=== PATIENT | male | born 1940 | race Caucasian/White ===

== ENCOUNTER → 2023-03-07 09:21 | Outpatient (REF) | payer MEDICARE, OTHER, SELFPAY ==
[2023-03-07 10:59] LABS: Magnesium 1.5 mg/dl (1.6-2.3)
== END ==
LOC: OLABN 09:21
PROVIDERS: ATTENDING PHYSICIAN Student in an Organized Health Care Education/Training Program
DX: E83.42 Hypomagnesemia (principal); R06.02 Shortness of breath; R05.9 Cough, unspecified
CPT/HCPCS: 36415; 83735

== ENCOUNTER 2023-09-08 11:21 | Inpatient (IN) | payer MEDICARE, OTHER, SELFPAY ==
[2023-09-08] VITALS (19 sets, daily range): BP systolic 94–143; BP diastolic 41–101; BMI 31.1; BMI 30.7
--- NOTE | 2023-09-08 06:02 | ED.GENMED ---
History of Present Illness
General
Chief Complaint: Change in Mental Status
Source: family (Daughter), ambulance crew, [facility] and [facility] records
Exam Limitations: dementia
Time Seen by Provider: 09/08/23 05:49
Nursing documentation reviewed up to this point in time: agreed with
History of Present Illness
History of Present Illness:
82-year-old male with past medical history as documented notable for dementia, A-fib, prior CVA with residual aphasia who presents to the emergency room via EMS from [facility] for evaluation of fever, confusion. Patient is very limited as a
historian due to his baseline aphasia and now acute confusion as well. History obtained from EMS, [facility] staff as well as the patient's daughter who arrived later in the emergency room to provide collateral history. According to patient's
daughter at baseline he has very poor short-term memory, is oriented x 2 and has difficulties with his speech as he has expressive aphasia related to his old stroke. He also has some left-sided weakness from old stroke. He cannot communicate his
needs. Lives in the dementia unit at [facility]. According to [facility] staff yesterday evening they noticed that patient had a cough. He had a significant coughing spell at dinnertime and they say he had a brief syncopal event. They
were watching him closely in the evening thereafter. Apparently when they checked his vital signs later in the evening they noted that he was febrile to 102.9 �F. He was treated with Tylenol but fever returned later in the night. Staff at
[facility] noted increasing confusion and ultimately transferred patient to the emergency room to be evaluated. They have not noticed any vomiting, diarrhea or any other recent issues aside from cough and fever.
Review of Systems
Review of Systems
Unable to obtain full review of systems at this time due to: dementia
All Other Systems: Not applicable
Phy Exam
Physical Exam
Physical Exam:
General: Awake, alert, oriented to person but not place or time
Head: Normocephalic, atraumatic
Eyes: Conjunctiva normal, pupils equal round reactive to light bilaterally, extraocular movements intact
Throat: Airway intact, handling secretions
Neck: Trachea midline
Lungs: Occasional coughing, oxygen saturation respiratory rate acceptable; breath sounds are diminished at the lung bases
Heart: Regular rate and rhythm, no murmurs, gallops, or rubs appreciated
Abd: Soft, non distended, no apparent tenderness
Neuro: Questionable mild left facial droop (apparently this is not new per daughter); slight dysarthria and expressive aphasia; he does appear to be moving all extremities spontaneously with no gross motor deficits although he is not consistently
following commands to cooperate with full neurologic assessment
Skin: no rash
Extremities: He has trace edema in his legs bilaterally; extremities are warm and well-perfused
Scores
Heart Failure Risk
Heart Failure Risk Score: Not Applicable
Heart Score for Chest Pain Patients
STEMI patient?: Not applicable
Withdrawal Assessment of Alcohol
Withdrawal Assessment Completed?: Not applicable
Course
Orders/Labs/Results
Orders:
Orders
09/08/23 05:50
Electrocardiogram (*1) Urgent
Reason for Study: TIA/Stroke
EKG- Treatment ONCE
CR Chest Portable - 1 View Urgent
Comment:
Reason For Exam: fever
Reason Study Needs to be Portable: Unable to Transport
09/08/23 05:51
CT Head W/o Iv Contrast Urgent
Comment:
Reason For Exam: change in mentation
09/08/23 06:22
COVID-19 Antigen Urgent
Source: Nasal Swab
Complete Blood Count/With Diff Urgent
Comprehensive Metabolic Panel Urgent
Lactate Level [Lactic Acid] Urgent
Blood Culture Q30M
[facility] Source: Blood/Venous
Specimen Description:
Influenza A+B Rapid Molecular Urgent
[facility]CHO Source: Nasal Swab
Specimen Description:
09/08/23 06:29
Urinalysis Reflex To Culture Urgent
Date Specimen was Collected: 09/08/23
Time Specimen was Collected: 06:21
09/08/23 06:30
Blood Culture Q30M
[facility] Source: Blood/Venous
Specimen Description:
09/08/23 06:50
0.9% Sodium Chloride 500 ml [Nss] 500 ml IV BOLUS
09/08/23 06:51
Vancomycin 2000 mg IVPB x 1 LOADING DOSE Vancomycin [Vancocin] 2,000 mg 0.9% Sodium Chloride 500 ml [Nss] 500 ml IV NOW
Zosyn 3.375 grams IVPB NOW Piperacillin/Tazo 3.375 Gram [Zosyn] 3.375 gram in 50 ml IV NOW
Abnormal Lab Results
09/08/23
06:22
WBC 17.4 H 10^3/uL
(4.8-10.8)
RBC 3.77 L 10^6/uL
(4.70-6.10)
Hgb 11.3 L g/dL
(13.0-18.0)
Hct 33.4 L %
(39.0-52.0)
MPV 10.8 H fL
(7.4-10.4)
Abs Immat Gran (auto) 0.1 H 10^3/uL
(0-0.05)
Absolute Neuts (auto) 13.1 H 10^3/uL
(1.4-6.5)
Absolute Monos (auto) 1.8 H 10^3/uL
(0.1-0.6)
Immature Gran % 0.7 H %
(0-0.5)
Neutrophils % 75.5 H %
(42.2-75.2)
Lymphocytes % 13.1 L %
(20.5-51.1)
Monocytes % 10.5 H %
(1.7-9.3)
BUN 22 H mg/dl
(9-20)
Glucose 117 H mg/dl
(70-99)
Lactic Acid 2.3 H mmol/L
(0.7-2.0)
09/08/23 06:22
09/08/23 06:22
Vital Signs
Initial and Last Documented VS:
Initial Vital Signs
Pulse Ox
97
09/08/23 06:32
Last Documented Vital Signs
Temp Pulse Resp BP Pulse Ox
37.7 C 60 16 94/63 96
09/08/23 06:35 09/08/23 06:35 09/08/23 06:35 09/08/23 06:35 09/08/23 06:35
MDM/Problems Addressed
Differential Diagnosis Includes:
Pneumonia, UTI, viral syndrome
MDM/Problems Addressed:
82-year-old male presents for evaluation of fever and increasing confusion over the past 24 hours in the setting of recent coughing. Vital signs and exam as documented. Plan to place an IV check labs including a CBC and a CMP, lactate, blood
cultures. Check urinalysis. Send viral swabs. Check a chest x-ray. Given confusion will check CT head. Will check an EKG as well�he did reportedly have questionable syncopal event had dinner last night. Will monitor closely reassess after the
above.
Initial results reviewed: CBC shows leukocytosis to 17.4. CMP shows no clinically significant abnormalities. Lactate was marginally elevated at 2.3. His COVID swab and flu swabs were negative. His chest x-ray reviewed by me shows a right midlung
opacity concerning for pneumonia based on full clinical picture. Will treat with antibiotics. Will plan for admission for continued treatment. Case discussed with hospitalist for admission.
Chronic conditions affecting care:
Prior stroke, dementia
*Radiology
Radiology exam reviewed: radiology read reviewed
*Pulse Oximetry
Patient hypoxic: no
*EKG
Interpreted by ED Provider?: Yes
Heart Rate: 63
Rate: normal
Rhythm: sinus
[place]: normal axis
Interval: first degree heart block
QRS Pattern: normal QRS
Ischemia: no ischemia
*Critical Care Note
Total Time (30-74mins, 75-104mins- exclusive of procedures): Not Applicable
Data Reviewed
Source: family (daughter), ambulance crew, [facility] and [facility] records
Patient Management
Discussion with other providers: Hospitalist (Discussed with hospitalist)
Escalation/DeEscalation of care consider admission/obs:
Admission indicated
ED Attending Note
-
Portions of this chart may have been created with voice recognition software.� Occasional wrong word or��sound alike� substitutions may have occurred due to the inherent limitations of voice recognition software.
Discharge Plan
Departure
Presentation/result/management discussed w/ accepting MD/DO: Hospitalist
Discharge Problem:
Pneumonia, Encephalopathy
Referrals:
Dustin Oliveira DO [Family Provider] -
Discharge Date and Time
Print Language: SPANISH
[2023-09-08 06:35] LABS: % Basophils 0.2 % (0-2); % Immature Granulocytes 0.7 % (0-0.5); % Lymphocytes 13.1 % (20.5-51.1); % Monocytes 10.5 % (1.7-9.3); % Neutrophils 75.5 % (42.2-75.2); Absolute Immature Granulocytes 0.1 10^3/uL (0-0.05); Absolute Lymphocytes 2.3 10^3/uL (1.2-3.4); Absolute Monocytes 1.8 10^3/uL (0.1-0.6); Absolute Neutrophils 13.1 10^3/uL (1.4-6.5); Hematocrit 33.4 % (39.0-52.0); Hemoglobin 11.3 g/dL (13.0-18.0); Mean Corp Hgb Conc. 33.8 g/dL (33.0-37.0); Mean Corpuscular Volume 88.6 fL (80.0-94.0); Mean Platelet Volume 10.8 fL (7.4-10.4); Nucleated Red Blood Cells % 0 % (-); Platelet Count 146 10^3/uL (130-400); Red Blood Cell Count 3.77 10^6/uL (4.70-6.10); Red Cell Dist. Width 14.5 % (11.5-14.5); White Blood Cell Count 17.4 10^3/uL (4.8-10.8)
[2023-09-08 06:47] LABS: COVID-19 Antigen Negative (Negative)
[2023-09-08 06:49] LABS: ALT (SGPT) 16 U/L (0-50); AST (SGOT) 19 U/L (17-59); Albumin 3.8 g/dl (3.5-5.0); Alkaline Phosphatase 79 U/L (38-126); Blood Urea Nitrogen 22 mg/dl (9-20); Calcium 9.3 mg/dl (8.4-10.2); Carbon Dioxide 26 mmol/L (22-30); Chloride 105 mmol/L (98-107); Glucose 117 mg/dl (70-99); Potassium 3.8 mmol/L (3.5-5.1); Sodium 139 mmol/L (135-145); Total Bilirubin 1.1 mg/dl (0.2-1.3); eGFR 55.53
[2023-09-08 06:50] LABS: Lactic Acid 2.3 mmol/L (0.7-2.0)
[2023-09-08 06:50] LABS: Urine Albumin Trace (Neg - Trace); Urine Bilirubin Negative (Negative); Urine Character Slightly Cloudy (Clear); Urine Color Yellow; Urine Glucose Negative (Negative); Urine Ketone Trace (Negative); Urine Leukocyte 2+ (Negative); Urine Nitrite Negative (Negative); Urine Occult Blood 2+ (Negative); Urine Urobilinogen Negative (Neg - 1+)
[2023-09-08] MEDS: NSS 500 IV (07:10)
[2023-09-08] MEDS: ZOSYN 50 IV ×3 (07:18→19:43)
[2023-09-08 07:24] LABS: Urine Mucus Few
[2023-09-08 07:27] LABS: Urine Amorphous Seen; Urine Bacteria Many (Negative); Urine Urothelial Cell 0-2 /LPF (FEW); Urine White Cell 90-100 /HPF (0-5)
[2023-09-08] MEDS: VANCOCIN 540 MG IV (09:00)
--- NOTE | 2023-09-08 10:48 | HPS.HSE ---
Family Physician
-
Family Physician: Dustin Oliveira DO
Chief Complaint
-
cough, SOB, fevers
History of Present Illness
82 y/o M, hx of dementia, prior CVA with residual asphasia, now bedbound, hx of A.fib presents to ER from [facility] with cough/SOB/Fever. At baseline his is minimally conservant and bedbound, assistance with all meals. Family visits daily. They noticed
on patient was coughing. Last evening, he began to have SOB And fevers. Tylenol was given without improvement; Tmax 102.9 this AM. He also reportedly had a brief syncopal event last evening. No other noted symptoms per family or facility.
In ER here, found to have PNA and started on IV Abx.
Medical History
Past Medical History
Past Medical History: Reports Other (hx of dementia, prior CVA with residual asphasia, now bedbound, hx of A.fib)
Past Surgical History: Reports Orthopedic (B/L Knee replacements)
Social History
Alcohol: None
Drug: None
Living: Senior Care
Employment: Disabled
Family History
Family History: Not pertinent
Allergies / Home Medications
Allergies reflects when Allergies were last updated in [facility].
Home Medications with original date entered in [facility]
Allergy/Medication List:
Allergies
Allergy/AdvReac Type Severity Reaction Status Date / Time
No Known Allergies Allergy Unverified 09/08/23 06:52
Home Medications
acetaminophen 300 mg-codeine 30 mg tablet 1 tab PO BIDPRN PRN moderate pain 09/08/23
acetaminophen 325 mg tablet (Tylenol) 650 mg PO Q4HPRN PRN mild pain 09/08/23
acetaminophen 650 mg rectal suppository 650 mg KS Q4HPRN PRN fever 09/08/23
apixaban 5 mg tablet (Eliquis) 5 mg PO BID 09/08/23
bisacodyl 10 mg rectal suppository (Dulcolax (bisacodyl)) 10 mg KS [id number] PRN if no bm aftr mom 09/08/23
bisacodyl 5 mg tablet,delayed release (Dulcolax (bisacodyl)) 10 mg PO Q48H@0830 09/08/23
diclofenac sodium 1 % topical gel 2 g topical TID both shoulders 09/08/23
fluoxetine 40 mg capsule (Prozac) 40 mg PO DAILY 09/08/23
fluticasone propionate 50 mcg/actuation nasal spray,suspension 2 spray intranasal DAILYPRN PRN allergies 09/08/23
furosemide 20 mg tablet (Lasix) 20 mg PO DAILY 09/08/23
levetiracetam 750 mg tablet (Keppra) 750 mg PO BID 09/08/23
lidocaine 4 % topical patch 1 patch topical DAILY shoulder pain 09/08/23
loratadine 10 mg tablet (Claritin) 10 mg PO HS 09/08/23
lorazepam 2 mg/mL oral concentrate (Lorazepam Intensol) 0.5 mg PO BID 09/08/23
lorazepam 2 mg/mL oral concentrate (Lorazepam Intensol) 0.5 mg PO Q4HPRN PRN anxiety 09/08/23
magnesium hydroxide 400 mg/5 mL oral suspension (Milk of Magnesia) 2,400 mg PO HSPRN PRN constipation 09/08/23
metoprolol succinate 100 mg tablet,extended release 24 hr (Toprol XL) 100 mg PO DAILY 09/08/23
oxycodone 5 mg tablet 2.5 mg PO BID 09/08/23
pantoprazole 40 mg tablet,delayed release (Protonix) 40 mg PO HS 09/08/23
tamsulosin 0.4 mg capsule (Flomax) 0.4 mg PO QPM 09/08/23
trazodone 50 mg tablet 50 mg PO HS 09/08/23
Review of Systems
-
Unable to obtain full review of systems at this time due to: Dementia
Physical Exam
Vital Signs
Vital Signs
Temp Pulse Resp BP Pulse Ox
99.9 F 62 14 117/64 99
09/08/23 06:35 09/08/23 10:15 09/08/23 10:15 09/08/23 10:15 09/08/23 10:14
Physical Exam
General: Appears Chronically Ill
HEENT: NormoCephalic and Anicteric
Respiratory: Rhonchi (RLL)
Cardiac: S1/S2 and Regular Rhythm
GI: Soft
Neuro: Awake
Psych: Confused and Apparent Dementia
Laboratory Results
-
09/08/23 06:22
09/08/23 06:22
Laboratory Results
Lactic Acid 2.3 mmol/L (0.7-2.0) H 09/08/23 06:22
Total Bilirubin 1.1 mg/dl (0.2-1.3) 09/08/23 06:22
AST 19 U/L (17-59) 09/08/23 06:22
ALT 16 U/L (0-50) 09/08/23 06:22
Alkaline Phosphatase 79 U/L (38-126) 09/08/23 06:22
Data Reviewed
-
Diagnostic Radiology: Report Reviewed by me and Discussed with Family
Lab Data: Labs Reviewed by me and Discussed with Family
Impression/Plan
-
Assessment:
Severe sepsis POA (leukocytosis, fevers, lactic acidosis, PNA, UTI)
RLL pneumonia
- highly likely aspiration related given underlying age, dementia, CVA, bedbound state
- start Vanco, Zosyn, day 1
- check cultures including MRSA swab
- start IVF
- when more alert, can trial speech therapy evaluation
TME in setting of Sepsis/UTI/PNA
- CT head: Atrophy. 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 Encephalomalacia related to old infarct involving the posterior right qxfuckcc-hwmakgzte-ruendvsv lobe.
UTI
- start Zosyn, day 1
- check cultures
Dementia, unknown subtype
Prior CVA (2019) with L sided residual weakness, asphasia
- CT head: Atrophy. 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 Encephalomalacia related to old infarct involving the posterior right xdwrdiif-idwfkdgen-opyqumur lobe.
- convert to IV Keppra
Parox A. fib
Hx of CHF, unknown type
- hold Toprol XL, hold Eliquis
- IV heparin drip given high CHADSvasc score
- IV BB ordered with parameters
- follow I/Os, weights
Insomnia
- hold Trazodone
GERD - IV PPI
BPH
- hold Flomax
- Bladder scans added
- check Renal/Bladder US
DVT ppx: IV Heparin
Code: DNR confirmed
--- NOTE | 2023-09-08 11:38 | CM ---
CM following re: discharge planning.
Reviewed pt's chart, met with pt and pt's daughter Una at bedside.
Pt is an 82 year old male, admitted with primary dx od Altered mental status.
Pt is not a great historian, information obtained from pt's daughter Una. 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 Per daughter
Una, pt is and pt's ex- Tahmina is supportive. Per daughter, pt requires total care, uses Seng lift for transferring from a bed to a chair. Per daughter, pt will return back to [facility] for a prison care when medically stable.
PCP: Dustin Oliveira
Pharmacy: Contract pharmacy
D/C plan: return back to [facility] for a prison care.
CM will follow with discharge plan updates as hospitalization progresses
--- NOTE | 2023-09-08 14:00 | PTCARENOTE ---
pt admitted to room 3347 from ED. Transferred from stretcher to bed. Pt max assist at baseline with mukul. bedscale weight obtained. pt drowsy, arouses easily to voice. oriented to self, disoriented to place and time. unable to answer most questions
(per daughter pt does not always appropriately answer yes/ no questions). SR on telemetry with occasional pvcs, history of afib (on eliquis) to be started on heparin gtt. Pulses palpable. trace edema in lower extremities. pt on room air, sat 97%.
lung sounds diminished in bases. NPO per orders, aspiration precautions. incontinent of urine. right thigh with old wound, two small open areas. heels red blanchable. see worklist for full nursing assessment and interventions.
[2023-09-08 14:36] LABS: APTT 29.9 Sec (23.4-35.0)
--- NOTE | 2023-09-08 14:47 | PHA.VAN.IN ---
Assessment
- Assessment
Renal Function: Unknown baseline
Renal Function may be Overestimated due to: Obesity. BMI = 31.1
Maximum Temperature: 99.1
Minimum Temperature: 98.2
Concomitant Antimicrobials: Piperacillin-tazobactam
AUC Dosing Plan
- Dosing Variables
Dosing Weight (kg): 98.4kg
Dosing CrCl (ml/min): 53
Vd coefficient (L/kg): 0.6
- Empiric Dosing
Initial / Loading Dose: Vanc 2gm given 09/07 at 0720
Maintenance Regimen: Vanc 1500mg IV Q24H
Estimated AUC (mcg*h/mL): 544
Estimated Peak (mcg*h/mL): 37
Estimated Trough (mcg/ml): 12.5
Estimated Half Life (H): 14.3
- Monitoring
No levels ordered at this time: Consider levels after / dose.
Pharmacokinetics Vancomycin I
- -
Patient Age: 82
Patient Sex: Male
Vancomycin Day #: 1
Indication: Pulmonary/Respiratory
Requesting Provider: Laury
Height / Weight:
Height 5 ft 10 in
Actual Weight 98.4 kg
IBW in k
Adjusted BW in k.2
- Vital Signs / Lab Results
Temp Pulse Resp BP Pulse Ox
98.2 F 66 14 112/60 97
09/08/23 13:59 09/08/23 14:00 09/08/23 14:00 09/08/23 13:54 09/08/23 13:59
Lab Results - Hematology
09/08/23
06:22
WBC 17.4 H
Lab Results - Chemistry
09/08/23
06:22
BUN 22 H
Creatinine 1.3
Albumin 3.8
09/08/23
06:22
Lactic Acid 2.3 H
Lab Results - Urine
09/08/23
06:29
Urine Nitrite (Reflex) Negative
Leukocyte Esterase Rfl 2+ A
Urine WBC (Reflex) 90-100 A
Ur Squamous Epith Cells 11-15
Urine Bacteria (Reflex) Many A
Microbiology Results
09/08/23 06:22 Influenza Types A & B (FROYLAN) - Final
Nasal Swab Negative for Influenza A & B, NAAT
Negative results must be combined with clinical observations
and patient history.
Nucleic Acid Amplification test (NAAT)performed on the
[employer] platform.
[2023-09-08] MEDS: NSS 1000 IV (14:48)
[2023-09-08] MEDS: KEPPRA 750 MG IV ×2 (14:48→19:43)
[2023-09-08] MEDS: NSS (PRESERVATIVE FREE) 10 ML IV (14:49)
[2023-09-08] MEDS: PROTONIX IV 40 MG IV (14:49)
[2023-09-08] MEDS: HEPARIN 25000 UNITS/250 ML IV (15:31)
[2023-09-08 22:56] LABS: APTT 38.7 Sec (23.4-35.0); Lactic Acid 2.6 mmol/L (0.7-2.0)
[2023-09-09] VITALS (15 sets, daily range): BP systolic 117–177; BP diastolic 61–123; BMI 30.7
[2023-09-09] MEDS: ZOSYN 50 IV ×4 (01:49→21:15)
[2023-09-09 04:19] LABS: APTT 56.2 Sec (23.4-35.0)
[2023-09-09 04:59] LABS: % Basophils 0.3 % (0-2); % Eosinophils 0.8 % (0-6); % Immature Granulocytes 0.3 % (0-0.5); % Lymphocytes 9.8 % (20.5-51.1); % Monocytes 5.6 % (1.7-9.3); % Neutrophils 83.2 % (42.2-75.2); Absolute Eosinophils 0.1 10^3/uL (0-0.7); Absolute Lymphocytes 0.9 10^3/uL (1.2-3.4); Absolute Monocytes 0.5 10^3/uL (0.1-0.6); Absolute Neutrophils 7.4 10^3/uL (1.4-6.5); Hematocrit 32.6 % (39.0-52.0); Mean Corp Hgb Conc. 33.7 g/dL (33.0-37.0); Mean Corpuscular Hgb 29.6 pg (27.0-31.0); Mean Corpuscular Volume 87.6 fL (80.0-94.0); Mean Platelet Volume 10.5 fL (7.4-10.4); Nucleated Red Blood Cells % 0 % (-); Platelet Count 119 10^3/uL (130-400); Red Blood Cell Count 3.72 10^6/uL (4.70-6.10); Red Cell Dist. Width 14.2 % (11.5-14.5); White Blood Cell Count 8.9 10^3/uL (4.8-10.8)
[2023-09-09 05:33] LABS: Blood Urea Nitrogen 22 mg/dl (9-20); Calcium 9.1 mg/dl (8.4-10.2); Carbon Dioxide 22 mmol/L (22-30); Chloride 107 mmol/L (98-107); Estimated Creatinine Clearance 63 ml/min; Glucose 87 mg/dl (70-99); Potassium 3.4 mmol/L (3.5-5.1); Sodium 141 mmol/L (135-145); eGFR > 60.00
[2023-09-09] MEDS: VANCOCIN IV ×2 (05:38)
[2023-09-09] MEDS: NSS 1000 IV (05:38)
[2023-09-09 05:49] LABS: Magnesium 1.6 mg/dl (1.6-2.3)
[2023-09-09] MEDS: VANCOCIN 300 MG IV (06:25)
[2023-09-09] MEDS: VANCOCIN 300 ML IV (06:25)
[2023-09-09 07:00] LABS: Lactic Acid 0.6 mmol/L (0.7-2.0)
[2023-09-09] MEDS: PROTONIX IV 40 MG IV (08:17)
[2023-09-09] MEDS: NSS (PRESERVATIVE FREE) 10 ML IV (08:18)
[2023-09-09] MEDS: KEPPRA 750 MG IV ×2 (08:18→21:12)
--- NOTE | 2023-09-09 10:25 | PTOTSP ---
SPEECH THERAPY SWALLOW EVALUATION:
Clinical signs of oropharyngeal dysphagia, likely chronic related to dementia and prior CVA. Patient currently with RLL pneumonia, likely aspiration-related per chart review. Patient remains at high risk for aspiration and related complications
given predisposing dysphagia risk factors, tenuous pulmonary status, limited mobility, and confusion/impulsivity. Recommend instrumental assessment of swallowing via Videofluoroscopic Swallowing Study to further assess patient's swallow physiology.
Recommend NPO except for necessary medications crushed in puree until VFSS. Medications crushed in puree to be given only when patient positioned upright and with 1:1 assistance; Should patient exhibit any signs of aspiration or decline in
respiratory status, d/c oral medications. Speech therapy to follow, provide further recommendations following results of VFSS, provide continued education regarding aspiration risks/precautions, and provide continued diagnostic swallow therapy as
appropriate.
RECOMMEND:
1) NPO except for necessary medications crushed in puree until VFSS
2) Should patient exhibit any signs of aspiration or decline in respiratory status, d/c oral medications
3) Videofluoroscopic Swallowing Study
4) Speech therapy to follow, provide further recommendations following results of VFSS, provide continued education regarding aspiration risks/precautions, and provide continued diagnostic swallow therapy as appropriate
[2023-09-09] MEDS: HEPARIN 25000 UNITS/250 ML IV (11:17)
[2023-09-09 11:46] LABS: APTT 99.3 Sec (23.4-35.0)
--- NOTE | 2023-09-09 12:42 | PHA.VAN.FU ---
Vancomycin Assessment / Plan
- Assessment
Renal Function: SCR Decreasing
WBC's are: Trending Down
In the past 24 hrs, patient has been: Afebrile
Concomitant Antimicrobials: Piperacillin-tazobactam
- Follow Up
Pharmacy will continue to follow.
Vancomycin Follow UP
- -
Patient Age: 82
Patient Sex: Male
Vancomycin Day #: 2
Indication: Pulmonary/Respiratory
Requesting Provider: Laury
Height / Weight:
Height 5 ft 10.08 in
Actual Weight 97.4 kg
IBW in k
Adjusted BW in k.2
- Vital Signs / Lab Results
Temp Pulse Resp BP Pulse Ox
97.9 F 73 12 128/84 93
09/09/23 07:35 09/09/23 10:00 09/09/23 10:00 09/09/23 10:00 09/09/23 10:00
Lab Results - Hematology
09/08/23 09/09/23
06:22 04:50
WBC 17.4 H 8.9
Lab Results - Chemistry
09/08/23 09/09/23
06:22 04:50
BUN 22 H 22 H
Creatinine 1.3 1.1
Estimated Creat Clear 63
Albumin 3.8
09/08/23 09/08/23 09/09/23
06:22 22:38 06:40
Lactic Acid 2.3 H 2.6 H 0.6 L
Lab Results - Urine
09/08/23
06:29
Urine Nitrite (Reflex) Negative
Leukocyte Esterase Rfl 2+ A
Ur Squamous Epith Cells 11-15
Microbiology Results
09/08/23 06:29 Urine Culture - Preliminary
Urine Escherichia coli
09/08/23 07:09 Blood Culture - Preliminary
Blood/Venous No Growth in 24 hours- Final report to follow
09/08/23 06:22 Blood Culture - Preliminary
Blood/Venous No Growth in 24 hours- Final report to follow
09/08/23 06:22 Influenza Types A & B (FROYLAN) - Final
Nasal Swab Negative for Influenza A & B, NAAT
Negative results must be combined with clinical observations
and patient history.
Nucleic Acid Amplification test (NAAT)performed on the
[employer] platform.
--- NOTE | 2023-09-09 14:46 | W.PN.HOSP.TC ---
Today's Communication/Plan
-
continue Abx pending cultures
VSE in AM
Potassium rider
Assessment / Plan
Assessment / Plan
Assessment:
Severe sepsis POA (leukocytosis, fevers, lactic acidosis, PNA, UTI)
RLL pneumonia
- highly likely aspiration related given underlying age, dementia, CVA, bedbound state
- speech therapy evaluated; for VSE in AM
- continue Vanco, Zosyn, day 2
- check cultures including MRSA swab
- continue IVF
TME in setting of Sepsis/UTI/PNA
- CT head: Atrophy. 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 Encephalomalacia related to old infarct involving the posterior right vyfpxkcx-xwjekxqex-mqnphiaq lobe.
E. Coli UTI
- continue Zosyn, day 2
- check cultures
Dementia, unknown subtype
Prior CVA (2019) with L sided residual weakness, asphasia
- CT head: Atrophy. 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 Encephalomalacia related to old infarct involving the posterior right ttrlhcde-fcwpmjwdk-dzebftlw lobe.
- convert to IV Keppra while NPO
Parox A. fib
Hx of CHF, unknown type
- hold Toprol XL: IV BB ordered with parameters
- hold Eliquis. on IV heparin drip given high CHADSvasc score and prior CVA
- follow I/Os, weights
Insomnia
- hold Trazodone
GERD - IV PPI
BPH
- hold Flomax
- Bladder scans added
- Renal/Bladder US without obstruction in light of UTI
Hypokalemia - IV repletion
DVT ppx: IV Heparin
Code: DNR confirmed
Anticipated Discharge: > 48 hours
Subjective/Interval History
-
Date of Service: September 09, 2023
no overnight events
No fevers
Objective Data
-
Labs:
Laboratory Results
09/09/23 09/09/23 09/09/23
03:48 04:50 11:25
WBC 8.9
Hgb 11.0 L
Hct 32.6 L
Plt Count 119 L
APTT 56.2 H 99.3 H
Sodium 141
Potassium 3.4 L
Chloride 107
Carbon Dioxide 22
BUN 22 H
Creatinine 1.1
Glucose 87
Calcium 9.1
09/09/23
18:00
WBC
Hgb
Hct
Plt Count
APTT Pending
Sodium
Potassium
Chloride
Carbon Dioxide
BUN
Creatinine
Glucose
Calcium
Vital Signs:
Vital Signs
Temp Pulse Resp BP Pulse Ox
98.4 F 73 12 128/84 93
09/09/23 11:16 09/09/23 10:00 09/09/23 10:00 09/09/23 10:00 09/09/23 10:00
I&O
09/08/23 09/09/23 09/10/23
06:59 06:59 06:59
Intake Total 1840 / 1840
Output Total 375 / 375 300 / 300
Balance 1465 / 1465 -300 / -300
Physical Exam
-
General: No Apparent Distress
HEENT: Normocephalic and Atraumatic
Respiratory: Negative Wheezes or Rales
Cardiac: Regular Rhythm and S1/S2
GI: Soft and Nontender
Genito-urinary: No Costovertebral Tender
Musculoskeletal: No Edema
Neuro: AO x 3
Hematologic / Lymphatic: No Lymphadenopathy
Psych: Calm
Data Reviewed
-
Total Time Spent with Patient (in minutes): 45
Labs: Labs Reviewed by me
[2023-09-09] MEDS: KCL 270 MEQ IV (15:08)
[2023-09-09 18:38] LABS: APTT 121.8 Sec (23.4-35.0)
[2023-09-10] VITALS (13 sets, daily range): BP systolic 132–182; BP diastolic 73–118; BMI 28.5
[2023-09-10 02:07] LABS: % Basophils 0.4 % (0-2); % Eosinophils 1.5 % (0-6); % Immature Granulocytes 0.4 % (0-0.5); % Lymphocytes 22.7 % (20.5-51.1); % Monocytes 8.9 % (1.7-9.3); % Neutrophils 66.1 % (42.2-75.2); Absolute Eosinophils 0.1 10^3/uL (0-0.7); Absolute Lymphocytes 1.1 10^3/uL (1.2-3.4); Absolute Monocytes 0.4 10^3/uL (0.1-0.6); Absolute Neutrophils 3.1 10^3/uL (1.4-6.5); Hematocrit 28.3 % (39.0-52.0); Hemoglobin 9.7 g/dL (13.0-18.0); Mean Corp Hgb Conc. 34.3 g/dL (33.0-37.0); Mean Corpuscular Hgb 29.7 pg (27.0-31.0); Mean Corpuscular Volume 86.5 fL (80.0-94.0); Mean Platelet Volume 11.3 fL (7.4-10.4); Nucleated Red Blood Cells % 0 % (-); Platelet Count 109 10^3/uL (130-400); Red Blood Cell Count 3.27 10^6/uL (4.70-6.10); Red Cell Dist. Width 14.3 % (11.5-14.5); White Blood Cell Count 4.7 10^3/uL (4.8-10.8)
[2023-09-10 02:13] LABS: Blood Urea Nitrogen 16 mg/dl (9-20); Calcium 8.8 mg/dl (8.4-10.2); Carbon Dioxide 20 mmol/L (22-30); Chloride 110 mmol/L (98-107); Estimated Creatinine Clearance 69 ml/min; Glucose 81 mg/dl (70-99); Potassium 3.4 mmol/L (3.5-5.1); Sodium 140 mmol/L (135-145); eGFR > 60.00
[2023-09-10] MEDS: ZOSYN 50 IV ×4 (02:23→19:49)
[2023-09-10] MEDS: NSS 1000 IV (02:27)
[2023-09-10] MEDS: VANCOCIN 300 ML IV (06:19)
[2023-09-10] MEDS: VANCOCIN 300 MG IV (06:19)
[2023-09-10] MEDS: HEPARIN 25000 UNITS/250 ML IV (07:13)
[2023-09-10] MEDS: PROTONIX IV 40 MG IV (07:50)
[2023-09-10] MEDS: NSS (PRESERVATIVE FREE) 10 ML IV (07:51)
[2023-09-10] MEDS: KEPPRA 750 MG IV ×2 (07:51→19:49)
[2023-09-10 08:59] LABS: APTT 95.1 Sec (23.4-35.0)
--- NOTE | 2023-09-10 10:33 | PTCARENOTE ---
Pt to video swallow Heparin continues as ordered
--- NOTE | 2023-09-10 11:16 | PHA.VAN.FU ---
Vancomycin Assessment / Plan
- Assessment
Renal Function: Stable
WBC's are: WNL
In the past 24 hrs, patient has been: Afebrile
Concomitant Antimicrobials: Piperacillin/Tazobactam
- Dosing Plan
Continue: 1500mg Q24H
- Monitoring Plan
Peak Level: 09/11/23 @0900
Trough Level: 09/12/23 @0530
- Follow Up
Pharmacy will continue to follow.
Vancomycin Follow UP
- -
Patient Age: 82
Patient Sex: Male
Vancomycin Day #: 3
Indication: Pulmonary/Respiratory
Requesting Provider: Laury
Height / Weight:
Height 5 ft 10.08 in
Actual Weight 90.3 kg
IBW in k
Adjusted BW in k.2
- Vital Signs / Lab Results
Temp Pulse Resp BP Pulse Ox
98.1 F 59 18 160/90 93
09/10/23 07:30 09/10/23 08:00 09/10/23 08:00 09/10/23 07:57 09/10/23 08:00
Lab Results - Hematology
09/08/23 09/09/23 09/10/23
06:22 04:50 01:44
WBC 17.4 H 8.9 4.7 L
Lab Results - Chemistry
09/08/23 09/09/23 09/10/23
06:22 04:50 01:44
BUN 22 H 22 H 16
Creatinine 1.3 1.1 1.0
Estimated Creat Clear 63 69
Albumin 3.8
09/08/23 09/08/23 09/09/23
06:22 22:38 06:40
Lactic Acid 2.3 H 2.6 H 0.6 L
Microbiology Results
09/08/23 06:29 Urine Culture - Final
Urine Escherichia coli - ESBL
09/08/23 07:09 Blood Culture - Preliminary
Blood/Venous No Growth in 48 hours- Final report to follow
09/08/23 06:22 Blood Culture - Preliminary
Blood/Venous No Growth in 48 hours- Final report to follow
09/08/23 14:13 MRSA Screen - Final
Nose No Methicillin Resistant Staphylococcus aureus isolated.
09/08/23 06:22 Influenza Types A & B (FROYLAN) - Final
Nasal Swab Negative for Influenza A & B, NAAT
Negative results must be combined with clinical observations
and patient history.
Nucleic Acid Amplification test (NAAT)performed on the
[employer] platform.
--- NOTE | 2023-09-10 11:33 | CON.ID ---
Consultation
-
Date/Time Consultation Requested: 09/10/2023, 0947
Date/Time Consultation Performed: 09/10/2023, 1130
Requesting Provider: Dr. Jaret Rangel
Performing Provider: Dr. Argentina Gandhi
Reason for Consultation: ESBL UTI
Chief Complaint / Past History
Chief Complaint
Cough
History of Present Illness
History obtained from review of medical records as well as from her daughter at bedside since patient has dementia and unable to provide a full meaningful history. He is a 82[place]year[place]old [place] with history of CVA, aphasia, left-sided
weakness, CHF, BPH who was sent to the ER on September 07 with several day history of cough with shortness of breath and change in mental status. He then developed fever 102.9 and sent to the hospital. Admission white count was 17.4. Lactic acid was
2.3. He was started on Zosyn for pneumonia and suspected UTI. He had video swallow study done today. Per daughter, patient mental status has improved. Also the cough has decreased. Patient states he is feeling better. He denies history of
recent dysuria or urinary urgency. No flank pain. Per daughter he normally eats regular foods. Sometimes he coughs with sips of water.
Past History
Additional Past Medical History:
Dementia
CVA w/ aphasia, left side weakness
pAfib
CHF
BPH
B TKA
Allergy History:
No Known Allergies Allergy (Unverified 09/08/23 06:52)
Medications Reviewed: Yes
Current Antibiotics:
Zosyn d3
Social History
Tobacco: Non-Smoker
Alcohol: None
Drug: None
Living: Retirement
Family History
Family History: Not Pertinent
Review of Systems
Review of Systems
HEENT: Negative Headache
Cardiovascular: Negative Chest Pain
Respiratory: Negative Sputum Production
Gasteroenterology: Other (no diarrhea); Negative Nausea or Vomiting
Genital / Urological: Negative Dysuria or Flank Pain
Endocrine: Weakness
Neurological: Negative Headache or Dizziness
All systems: All other systems were reviewed and were negative
Vital Signs
Temp Pulse Resp BP Pulse Ox
98.1 F 59 18 160/90 93
09/10/23 07:30 09/10/23 08:00 09/10/23 08:00 09/10/23 07:57 09/10/23 08:00
Physical Exam
Physical Exam
Constitutional: No Acute Distress and Comfortable
Eyes: No Conjunctival Hemorrhage and Sclera Anicteric
Cardiovascular: Regular Rate and S1/S2
Pulmonary: Rales (bases)
Gastrointestinal: Soft, Non Tender, Non Distended and Normal Bowel Sounds
Genito-Urinary: Negative Auguste or CVA Tenderness
Extremities: Negative Edema
Musculoskeletal: Negative Joint Swelling (Knees) or Joint Effusion (Knees)
Neurological: Awake and Alert
Lab / Diagnostic Study Results
09/10/23 01:44
09/10/23 01:44
Abs Immat Gran (auto) 0.0 10^3/uL (0-0.05) 09/10/23 01:44
Absolute Neuts (auto) 3.1 10^3/uL (1.4-6.5) 09/10/23 01:44
Absolute Lymphs (auto) 1.1 10^3/uL (1.2-3.4) L 09/10/23 01:44
Absolute Monos (auto) 0.4 10^3/uL (0.1-0.6) 09/10/23 01:44
Absolute Basos (auto) 0.0 10^3/uL (0-0.2) 09/10/23 01:44
Immature Gran % 0.4 % (0-0.5) 09/10/23 01:44
Neutrophils % 66.1 % (42.2-75.2) 09/10/23 01:44
Lymphocytes % 22.7 % (20.5-51.1) 09/10/23 01:44
Monocytes % 8.9 % (1.7-9.3) 09/10/23 01:44
Eosinophils % 1.5 % (0-6) 09/10/23 01:44
Basophils % 0.4 % (0-2) 09/10/23 01:44
Lactic Acid 0.6 mmol/L (0.7-2.0) L 09/09/23 06:40
Ur Squamous Epith Cells 11-15 /LPF (Few) 09/08/23 06:29
Microbiology Results
Micro:
09/08/23 06:29 Urine Culture - Final
Urine Escherichia coli - ESBL
09/08/23 07:09 Blood Culture - Preliminary
Blood/Venous No Growth in 48 hours- Final report to follow
09/08/23 06:22 Blood Culture - Preliminary
Blood/Venous No Growth in 48 hours- Final report to follow
09/08/23 14:13 MRSA Screen - Final
Nose No Methicillin Resistant Staphylococcus aureus isolated.
09/08/23 06:22 Influenza Types A & B (FROYLAN) - Final
Nasal Swab Negative for Influenza A & B, NAAT
Negative results must be combined with clinical observations
and patient history.
Nucleic Acid Amplification test (NAAT)performed on the
[employer] platform.
09/09/23 Renal US: No sonographic evidence for hydronephrosis.
09/08/23 CXR: Mild interstitial stranding at the lung bases, likely atelectasis. No focal dense consolidation. Cardiomegaly without vascular congestion or congestive heart failure. No pneumothorax. No radiographically demonstrable pleural effusion.
Assessment / Plan
# Suspect aspiration PNA
- Video swallow study pending
-Continue Zosyn (d3) for now.
-Aspiration precaution
# ESBL-E.coli bacteruria
Asymptomatic = colonization
No need to treat at this time
# Leukocytosis resolved
# Afebrile
--- NOTE | 2023-09-10 14:27 | PTOTSP ---
Video Swallow Examination
Patient presents with mild oral and mild-moderate pharyngeal stage of swallowing. There was deep laryngeal penetration to the vocal folds with thin liquids via cup before the swallow due to delay in swallow onset which did not clear due to reduced
laryngeal vestibule closure. Etiology of dysphagia is likely his dementia and prior CVA. Please see patient care note for full details of penetration/aspiration and swallowing physiology.
Recommend:
1. IDDSI Level 6 (Soft and Bite Sized), IDDSI Level 2 (Mildly Thick Liquids)
2. Full supervision/assistance
3. Medications crushed in applesauce if medically cleared to do so
4. Strategies: single sips/bites, slow rate, ensure patient swallows before next sip/bite
5. Dysphagia tx for patient education about swallow study, instruction in compensations, and rehabilitation as appropriate.
--- NOTE | 2023-09-10 17:26 | W.PN.HOSP.TC ---
Today's Communication/Plan
-
continue IVF, IV Heparin for now
transfer to tele
note for dgt for work
potential transition back to oral medications if tolerates diet
KCL supplement
Assessment / Plan
Assessment / Plan
Assessment:
Severe sepsis POA (leukocytosis WBC 17.4-->8.9-->4.7), fevers (Tmax on morning of admission 102.9, currently afebrile), lactic acidosis (2.6-->0.6), PNA, UTI(as per ID, probable colonization))
RLL pneumonia
- highly likely aspiration related given underlying age, dementia, CVA, bedbound state
- speech therapy evaluated; for VSE in AM
- continue Vanco, Zosyn, day 3
- check cultures , neg MRSA swab
- diet just advanced, for now will continue IVF, if pt tolerates fluids, will change dc IVF
TME in setting of Sepsis/UTI/PNA
- CT head: Atrophy. 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 Encephalomalacia related to old infarct involving the posterior right lttvvsma-rrasdvovv-jgmfsqah lobe.
E. Coli UTI/colonization
- continue Zosyn, day 3
- cultures demonstrate sens to Zosyn
Dementia, unknown subtype
Prior CVA (2019) with L sided residual weakness, asphasia
- CT head: Atrophy. 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 Encephalomalacia related to old infarct involving the posterior right pgvgpfwv-ypsqnvqyh-jepxvojr lobe.
- converted to IV Keppra while NPO, will change to oral if continues to tolerate diet
Parox A. fib
Hx of CHF, unknown type
- hold Toprol XL: IV BB ordered with parameters
- hold Eliquis. on IV heparin drip given high CHADSvasc score and prior CVA, potential resumption of Eliquis tomorrow, based on oral intake
- follow I/Os, weights
Insomnia
- hold Trazodone
GERD - IV PPI
BPH
- hold Flomax
- Bladder scans added
- Renal/Bladder US: URINARY BLADDER: Limited evaluation due to incomplete distention. Mild urinary bladder wall trabeculations. The urinary bladder volume is 119 mL. The bilateral ureteral jets are visualized.
The prostate gland measures 2.9 x 2.6 x 3.7 cm.
No sonographic evidence for hydronephrosis.
Hypokalemia - IV repletion, 3.4
DVT ppx: IV Heparin
Code: DNR confirmed
Anticipated Discharge: > 48 hours
Subjective/Interval History
-
Date of Service: September 10, 2023
As per dgt, mentation approaching baseline
Objective Data
-
Labs:
Laboratory Results
09/10/23
08:30
APTT 95.1 H
Vital Signs:
Vital Signs
Temp Pulse Resp BP Pulse Ox
97.7 F 68 15 162/87 97
09/10/23 11:50 09/10/23 16:00 09/10/23 16:00 09/10/23 16:00 09/10/23 16:00
I&O
09/09/23 09/10/23 09/11/23
06:59 06:59 06:59
Intake Total 1840 / 1840 1020 / 1020 100 / 100
Output Total 375 / 375 600 / 600
Balance 1465 / 1465 420 / 420 100 / 100
Review of Systems
-
History Source: Family (dgt at bedside)
Constitutional: Denies Fever
Respiratory: Reports No Symptoms; Denies Trouble Breathing
Abdomen/GI: Reports No Symptoms
Physical Exam
-
General: Well Developed, Well Nourished and No Apparent Distress
HEENT: Normocephalic, Atraumatic and Moist Mucous Membranes
Respiratory: Clear to Auscultation; Negative Wheezes, Rales or Rhonchi (not noted)
Cardiac: Regular Rhythm and S1/S2
GI: Soft, Nontender and Nondistended
Musculoskeletal: No Clubbing, No Cyanosis and No Edema
[2023-09-10] MEDS: D5/0.45%NSS with KCL 20 MEQ 1000 IV (20:33)
--- NOTE | 2023-09-10 23:30 | PTCARENOTE ---
pt received received from previous shift. Assessment unchanged. See nursing head to toe assessment for full head to toe. TX to 3 west report given to receiving RN.
[2023-09-11] VITALS: BP 149/78
--- NOTE | 2023-09-11 00:40 | PTCARENOTE ---
Rec'd patient from IMU into room 320 on . Pt. pulled over to bed in 320. Heparin gtt running at 13 mL/hr. Pt. AAOx1, bed alarm placed. Oriented to room. Call hale within reach. Will continue to monitor.
[2023-09-11] MEDS: HEPARIN 25000 UNITS/250 ML IV (02:02)
[2023-09-11] MEDS: ZOSYN 50 IV ×4 (02:05→20:19)
[2023-09-11 06:00] VITALS: BMI 29.1
[2023-09-11 06:24] LABS: % Basophils 0.5 % (0-2); % Eosinophils 3.3 % (0-6); % Immature Granulocytes 0.3 % (0-0.5); % Lymphocytes 36.8 % (20.5-51.1); % Monocytes 14.5 % (1.7-9.3); % Neutrophils 44.6 % (42.2-75.2); Absolute Eosinophils 0.1 10^3/uL (0-0.7); Absolute Lymphocytes 1.5 10^3/uL (1.2-3.4); Absolute Monocytes 0.6 10^3/uL (0.1-0.6); Absolute Neutrophils 1.8 10^3/uL (1.4-6.5); Hematocrit 28.9 % (39.0-52.0); Hemoglobin 9.6 g/dL (13.0-18.0); Mean Corp Hgb Conc. 33.2 g/dL (33.0-37.0); Mean Corpuscular Hgb 29.3 pg (27.0-31.0); Mean Corpuscular Volume 88.1 fL (80.0-94.0); Mean Platelet Volume 10.4 fL (7.4-10.4); Nucleated Red Blood Cells % 0 % (-); Platelet Count 104 10^3/uL (130-400); Red Blood Cell Count 3.28 10^6/uL (4.70-6.10)
[2023-09-11 06:34] LABS: APTT 117.4 Sec (23.4-35.0)
[2023-09-11 07:20] LABS: Blood Urea Nitrogen 11 mg/dl (9-20); Calcium 8.6 mg/dl (8.4-10.2); Carbon Dioxide 21 mmol/L (22-30); Chloride 110 mmol/L (98-107); Estimated Creatinine Clearance 55 ml/min; Glucose 120 mg/dl (70-99); Potassium 3.3 mmol/L (3.5-5.1); Sodium 136 mmol/L (135-145); eGFR > 60.00
[2023-09-11 07:25] VITALS: BP 157/82
[2023-09-11] MEDS: KEPPRA 750 MG IV (08:37)
[2023-09-11] MEDS: NSS (PRESERVATIVE FREE) 10 ML IV (08:38)
[2023-09-11] MEDS: PROTONIX IV 40 MG IV (08:38)
[2023-09-11] MEDS: D5/0.45%NSS with KCL 20 MEQ 1000 IV (08:39)
--- NOTE | 2023-09-11 11:05 | W.PN.ID1 ---
Date of Service
Date of Service: September 11, 2023
Today's Communication
At time of discharge, can transition Zosyn (d4) to Augmentin 875mg po bid (crush with applesauce) through 09/14/23.
Assessment / Plan
# Aspiration PNA improving
-Aspiration precaution as per Speech.
-At time of discharge, can transition Zosyn (d4) to Augmentin 875mg po bid (crush with applesauce) through 09/14/23.
# ESBL-E.coli bacteruria
Asymptomatic = colonization
No need to treat at this time
# Leukocytosis resolved
# Afebrile
#Additional Past Medical History:
Dementia
CVA w/ aphasia, left side weakness
pAfib
CHF
BPH
B TKA
Chief Complaint
-: Pneumonia
Subjective / Review of Systems
Daughter feeding patient. She reports no coughing with food today. Pt much improved.
Vital Signs / Physical Exam
Vital Signs
Vital Signs
Temp Pulse Resp BP Pulse Ox
97.6 F 52 16 157/82 99
09/11/23 00:00 09/11/23 07:25 09/11/23 07:25 09/11/23 07:25 09/11/23 09:24
Physical Exam
Constitutional: No Acute Distress and Comfortable
Pulmonary: Clear (anteriorly)
Gastrointestinal: Soft, Non Tender, Non Distended and Normal Bowel Sounds
Extremities: Negative Edema
Neurological: Awake
Objective Data
Lab Data
Lab Results
09/11/23 06:09
09/11/23 06:09
APTT 117.4 Sec (23.4-35.0) H 09/11/23 06:09
Estimated Creat Clear 55 ml/min 04/02/24 06:09
Lactic Acid 0.6 mmol/L (0.7-2.0) L 09/09/23 06:40
Total Bilirubin 1.1 mg/dl (0.2-1.3) 09/08/23 06:22
AST 19 U/L (17-59) 09/08/23 06:22
ALT 16 U/L (0-50) 09/08/23 06:22
Alkaline Phosphatase 79 U/L (38-126) 09/08/23 06:22
Most recent labs reviewed.
Micro Results:
09/08/23 07:09 Blood Culture - Preliminary
Blood/Venous No Growth in 72 hours- Final report to follow
09/08/23 06:22 Blood Culture - Preliminary
Blood/Venous No Growth in 72 hours- Final report to follow
09/08/23 06:29 Urine Culture - Final
Urine Escherichia coli - ESBL
09/08/23 14:13 MRSA Screen - Final
Nose No Methicillin Resistant Staphylococcus aureus isolated.
09/08/23 06:22 Influenza Types A & B (FROYLAN) - Final
Nasal Swab Negative for Influenza A & B, NAAT
Negative results must be combined with clinical observations
and patient history.
Nucleic Acid Amplification test (NAAT)performed on the
[employer] platform.
09/09/23 Renal US: No sonographic evidence for hydronephrosis.
09/08/23 CXR: Mild interstitial stranding at the lung bases, likely atelectasis. No focal dense consolidation. Cardiomegaly without vascular congestion or congestive heart failure. No pneumothorax. No radiographically demonstrable pleural effusion.
Care Review
Plan reviewed with: Physician (Dr. Rangel)
--- NOTE | 2023-09-11 11:14 | CM ---
CM following re: discharge planning.
Reviewed pt's chart, met with pt and two pt's daughters at bedside.
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
[facility] nursing report: [phone]
Discharge instructions fax: [phone]
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
CM will follow with discharge plan updates as hospitalization progresses
[2023-09-11 11:21] VITALS: BP 135/75
--- NOTE | 2023-09-11 12:04 | W.PN.HOSP.TC ---
Today's Communication/Plan
-
transition to oral medications. continue Zosyn for now
Assessment / Plan
Assessment / Plan
Assessment:
Severe sepsis POA (leukocytosis WBC 17.4-->8.9-->4.7-->4.0), fevers (Tmax on morning of admission 102.9, currently afebrile), lactic acidosis (2.6-->0.6), PNA, UTI(as per ID, probable colonization))
RLL pneumonia
- highly likely aspiration related given underlying age, dementia, CVA, bedbound state
- speech therapy evaluated; for VSE done 09/09: Video Swallow Examination
Patient presents with mild oral and mild-moderate pharyngeal stage of swallowing. There was deep laryngeal penetration to the vocal folds with thin liquids via cup before the swallow due to delay in swallow onset which did not clear due to reduced
laryngeal vestibule closure. Etiology of dysphagia is likely his dementia and prior CVA. Please see patient care note for full details of penetration/aspiration and swallowing physiology.
Recommend:
1. IDDSI Level 6 (Soft and Bite Sized), IDDSI Level 2 (Mildly Thick Liquids)
2. Full supervision/assistance
3. Medications crushed in applesauce if medically cleared to do so
4. Strategies: single sips/bites, slow rate, ensure patient swallows before next sip/bite
5. Dysphagia tx for patient education about swallow study, instruction in compensations, and rehabilitation as appropriate.
- continue Zosyn, day 4
- check cultures , neg MRSA swab neg, Vanco stopped
- diet advanced and appears to be tolerating, will stop IVF
TME in setting of Sepsis/UTI/PNA
- CT head: Atrophy. 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 Encephalomalacia related to old infarct involving the posterior right rugybjcp-uiefnlggp-uauqidny lobe.
resolved, as per dgt, pt back to baseline
E. Coli UTI/colonization
- continue Zosyn, day 4
- cultures demonstrate sens to Zosyn
Dementia, unknown subtype
Prior CVA (2019) with L sided residual weakness, asphasia
- CT head: Atrophy. 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 Encephalomalacia related to old infarct involving the posterior right dvigwyae-njvwbifzn-oxebrxiu lobe.
- convert to oral Keppra
Parox A. fib
Hx of CHF, unknown type
- resume Toprol XL: IV BB ordered with parameters
- resume Eliquis. stop IV heparin drip given high CHADSvasc score and prior CVA,
- follow I/Os, weights
Insomnia
- resume Trazodone
GERD - IV PPI
BPH
- resume Flomax
- Bladder scans added
- Renal/Bladder US: URINARY BLADDER: Limited evaluation due to incomplete distention. Mild urinary bladder wall trabeculations. The urinary bladder volume is 119 mL. The bilateral ureteral jets are visualized.
The prostate gland measures 2.9 x 2.6 x 3.7 cm.
No sonographic evidence for hydronephrosis.
Hypokalemia - 3.3, will start oral supplement
Many medication changes today, if tolerates, potential dc tomorrow. Met with dgt and discussed
Importance of feeding pt in upright position reviewed
DVT ppx: Eliquis
Code: DNR confirmed
extensive, complex visit
Anticipated Discharge: 24 - 48 hours
Subjective/Interval History
-
Date of Service: September 11, 2023
Looks better, more alert, mental status back to baseline as per dgt
Objective Data
-
Labs:
Laboratory Results
09/11/23 09/11/23
06:09 14:00
WBC 4.0 L
Hgb 9.6 L
Hct 28.9 L
Plt Count 104 L
APTT 117.4 H Pending
Sodium 136
Potassium 3.3 L
Chloride 110 H
Carbon Dioxide 21 L
BUN 11
Creatinine 1.1
Glucose 120 H
Calcium 8.6
Vital Signs:
Vital Signs
Temp Pulse Resp BP Pulse Ox
97.6 F 78 16 135/75 99
09/11/23 11:21 09/11/23 11:21 09/11/23 11:21 09/11/23 11:21 09/11/23 11:24
I&O
09/10/23 09/11/23 09/12/23
06:59 06:59 06:59
Intake Total 1020 / 1020 200 / 200
Output Total 600 / 600 550 / 550
Balance 420 / 420 -350 / -350
Review of Systems
-
Unable to obtain full review of systems at this time due to: Dementia
History Source: Family (dgt at bedside)
Constitutional: Denies Fever
Respiratory: Reports No Symptoms and Cough (on shallow respirations); Denies Trouble Breathing
Abdomen/GI: Reports No Symptoms
Physical Exam
-
General: Well Developed, Well Nourished and No Apparent Distress
HEENT: Normocephalic, Atraumatic and Moist Mucous Membranes
Respiratory: Clear to Auscultation; Negative Wheezes, Rales or Rhonchi (not noted)
Cardiac: Regular Rhythm and S1/S2
GI: Soft, Nontender and Nondistended
Musculoskeletal: No Clubbing, No Cyanosis and No Edema
[2023-09-11] MEDS: KCL ELIXIR 40 MEQ PO (13:00)
[2023-09-11] MEDS: TOPROL XL 100 MG PO (13:00)
[2023-09-11] MEDS: BENADRYL 25 MG PO (14:25)
[2023-09-11 14:30] LABS: APTT 103.2 Sec (23.4-35.0)
[2023-09-11 15:24] VITALS: BP 139/70
[2023-09-11 19:00] VITALS: BP 140/66
[2023-09-11] MEDS: ELIQUIS 5 MG PO (20:19)
[2023-09-11] MEDS: KEPPRA 750 MG PO (20:19)
[2023-09-11 23:08] VITALS: BP 155/69
[2023-09-12] MEDS: ZOSYN 50 IV ×3 (01:33→13:51)
[2023-09-12 03:00] VITALS: BP 148/79
[2023-09-12 05:18] VITALS: BMI 30.6
[2023-09-12 06:17] LABS: % Basophils 0.4 % (0-2); % Eosinophils 2.8 % (0-6); % Immature Granulocytes 0.5 % (0-0.5); % Lymphocytes 30.4 % (20.5-51.1); % Monocytes 11.4 % (1.7-9.3); % Neutrophils 54.5 % (42.2-75.2); Absolute Eosinophils 0.2 10^3/uL (0-0.7); Absolute Lymphocytes 1.7 10^3/uL (1.2-3.4); Absolute Monocytes 0.6 10^3/uL (0.1-0.6); Absolute Neutrophils 3.1 10^3/uL (1.4-6.5); Hematocrit 30.1 % (39.0-52.0); Mean Corp Hgb Conc. 33.2 g/dL (33.0-37.0); Mean Corpuscular Hgb 29.5 pg (27.0-31.0); Mean Corpuscular Volume 88.8 fL (80.0-94.0); Mean Platelet Volume 10.6 fL (7.4-10.4); Nucleated Red Blood Cells % 0 % (-); Platelet Count 124 10^3/uL (130-400); Red Blood Cell Count 3.39 10^6/uL (4.70-6.10); Red Cell Dist. Width 14.1 % (11.5-14.5); White Blood Cell Count 5.6 10^3/uL (4.8-10.8)
[2023-09-12 06:36] LABS: Blood Urea Nitrogen 8 mg/dl (9-20); Calcium 8.9 mg/dl (8.4-10.2); Carbon Dioxide 21 mmol/L (22-30); Chloride 111 mmol/L (98-107); Estimated Creatinine Clearance 57 ml/min; Glucose 94 mg/dl (70-99); Potassium 3.9 mmol/L (3.5-5.1); Sodium 138 mmol/L (135-145); eGFR > 60.00
[2023-09-12 07:00] VITALS: BP 165/90
[2023-09-12] MEDS: KEPPRA 750 MG PO (08:27)
[2023-09-12] MEDS: ELIQUIS 5 MG PO (08:29)
[2023-09-12] MEDS: KCL ELIXIR 40 MEQ PO (08:29)
[2023-09-12] MEDS: PROTONIX 40 MG PO (08:29)
[2023-09-12] MEDS: TOPROL XL 100 MG PO (08:29)
[2023-09-12 11:00] VITALS: BP 159/70
--- NOTE | 2023-09-12 11:28 | W.PN.HOSP.TC ---
Today's Communication/Plan
-
dc today
Assessment / Plan
Assessment / Plan
Assessment:
Severe sepsis POA (leukocytosis WBC 17.4-->8.9-->4.7-->4.0), fevers (Tmax on morning of admission 102.9, currently afebrile), lactic acidosis (2.6-->0.6), PNA, UTI(as per ID, probable colonization))
RLL pneumonia
- highly likely aspiration related given underlying age, dementia, CVA, bedbound state
- speech therapy evaluated; for VSE done 09/09: Video Swallow Examination
Patient presents with mild oral and mild-moderate pharyngeal stage of swallowing. There was deep laryngeal penetration to the vocal folds with thin liquids via cup before the swallow due to delay in swallow onset which did not clear due to reduced
laryngeal vestibule closure. Etiology of dysphagia is likely his dementia and prior CVA. Please see patient care note for full details of penetration/aspiration and swallowing physiology.
Recommend:
1. IDDSI Level 6 (Soft and Bite Sized), IDDSI Level 2 (Mildly Thick Liquids)
2. Full supervision/assistance
3. Medications crushed in applesauce if medically cleared to do so
4. Strategies: single sips/bites, slow rate, ensure patient swallows before next sip/bite
5. Dysphagia tx for patient education about swallow study, instruction in compensations, and rehabilitation as appropriate.
- continue Zosyn, day 4
- check cultures , neg MRSA swab neg, Vanco stopped
- diet advanced and appears to be tolerating, will stop IVF
TME in setting of Sepsis/UTI/PNA
- CT head: Atrophy. 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 Encephalomalacia related to old infarct involving the posterior right vcqscsgk-mjcskazrm-sqfdxzwg lobe.
resolved, as per dgt, pt back to baseline
E. Coli UTI/colonization
- continue Zosyn, day 4
- cultures demonstrate sens to Zosyn
Dementia, unknown subtype
Prior CVA (2019) with L sided residual weakness, asphasia
- CT head: Atrophy. 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 Encephalomalacia related to old infarct involving the posterior right hbwjtsyp-fllfiyznl-tkejrtnm lobe.
- convert to oral Keppra
Parox A. fib
Hx of CHF, unknown type
- resume Toprol XL: IV BB ordered with parameters
- resume Eliquis. stop IV heparin drip given high CHADSvasc score and prior CVA,
- follow I/Os, weights
Insomnia
- resume Trazodone
GERD - oral PPI resumed
BPH
- resume Flomax
- Bladder scans added
- Renal/Bladder US: URINARY BLADDER: Limited evaluation due to incomplete distention. Mild urinary bladder wall trabeculations. The urinary bladder volume is 119 mL. The bilateral ureteral jets are visualized.
The prostate gland measures 2.9 x 2.6 x 3.7 cm.
No sonographic evidence for hydronephrosis.
Hypokalemia - 3.3-->3.9
will dc on KCl supplement
Met with dgt and discussed
Importance of feeding pt in upright position reviewed
DVT ppx: Eliquis
Code: DNR confirmed
dc to [facility]
reviewed with dgt
More than 30 minutes spent in discharge including
Final examination of the patient
Summarizing hospital stay
Instructions for continuing care to all relevant caregivers
Preparation of discharge records, prescriptions, and referral forms
Total time spent (in minutes): 45
Anticipated Discharge: Today
Subjective/Interval History
-
Date of Service: September 12, 2023
Appears more attentive
Objective Data
-
Labs:
Laboratory Results
09/12/23
06:00
WBC 5.6
Hgb 10.0 L
Hct 30.1 L
Plt Count 124 L
Sodium 138
Potassium 3.9
Chloride 111 H
Carbon Dioxide 21 L
BUN 8 L
Creatinine 1.2
Glucose 94
Calcium 8.9
Vital Signs:
Vital Signs
Temp Pulse Resp BP Pulse Ox
97.7 F 60 18 165/90 97
09/12/23 07:00 09/12/23 08:29 09/12/23 07:00 09/12/23 08:29 09/12/23 09:20
I&O
09/11/23 09/12/23 09/13/23
06:59 06:59 06:59
Intake Total 200 / 200 480 / 480
Output Total 550 / 550 800 / 800
Balance -350 / -350 -320 / -320
Review of Systems
-
Unable to obtain full review of systems at this time due to: Dementia
History Source: Family (dgt, Holly, at bedside)
Constitutional: Denies Fever
Respiratory: Reports No Symptoms and Cough (essentially resolved); Denies Trouble Breathing
Abdomen/GI: Reports No Symptoms
Physical Exam
-
General: Well Developed, Well Nourished and No Apparent Distress
HEENT: Normocephalic, Atraumatic and Moist Mucous Membranes
Respiratory: Clear to Auscultation; Negative Wheezes, Rales or Rhonchi (not noted)
Cardiac: Regular Rhythm and S1/S2
GI: Soft, Nontender and Nondistended
Musculoskeletal: No Clubbing, No Cyanosis and No Edema
--- NOTE | 2023-09-12 12:06 | PTOTSP ---
Dysphagia Therapy
Patient presents with WFL-mild oral dysphagia and has a known mild-moderate pharyngeal dysphagia from recent video swallow study 09/10/2023. He is appropriate to initiate an aspiration risk hydration protocol as outlined below and to advance solids
to regular consistency. Therapy warranted at the acute care level and after D/C. Consider trial of Spaced Retrieval Training for instruction in chin tuck with thin liquids.
Recommend:
1. Regular Solids, IDDSI Level 2 (Mildly Thick Liquids)
2. Full supervision, assistance as needed
3. Medications crushed in applesauce if medically cleared to do so
4. Strategies: single sips/bites, slow rate, ensure patient swallows before next sip/bite
5. Aspiration Risk Hydration Protocol - unlimited water between meals after oral care, with supervision. Take single sips and tuck chin.
6. Dysphagia tx for patient education about swallow study, instruction in compensations, and rehabilitation as appropriate.
--- NOTE | 2023-09-12 12:27 | CM ---
met with daughter kwasi and patient at bedside.patient is stable to return to [facility].[place] and spoke with chad who confirmed that patient can return to facility.hosever, she has never received anything through [facility].i told chad i
would send clinical info.ponce villalpando has [employer] medicare letter.phone number to call report is [phone] and fax is [phone].ambulance transport will be arranged.
Plan return to [facility].
--- NOTE | 2023-09-12 14:13 | W.DS.TRANS ---
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
-
Discharge Instructions:
Discharge Diagnosis/Procedures Aspiration Pneumonia
Diet Other diet
Additional Diets 1. Regular Solids, IDDSI Level 2 (Mildly Thick
Liquids)
2. Full supervision, assistance as needed
3. Medications crushed in applesauce if
medically cleared to do so
4. Strategies: single sips/bites, slow rate,
ensure patient swallows before next sip/bite
5. Aspiration Risk Hydration Protocol -
unlimited water between meals after oral care,
with supervision. Take single sips and tuck
chin.
6. Dysphagia tx for patient education about
swallow study, instruction in compensations, and
rehabilitation as appropriate.
Activity With assistance
Driving Restrictions No driving
Bathing Restrictions None
Blood Work CBC, CMP in 1-2 weeks
Instructions:
Stand-Alone Forms:
Changes to Home Medications: Yes
Discharge Medications:
DC Medications w/original date entered in [employer]
acetaminophen 650 mg rectal suppository 650 mg PA Q4HPRN PRN fever 09/08/23
apixaban 5 mg tablet (Eliquis) 5 mg PO BID 09/08/23
bisacodyl 10 mg rectal suppository (Dulcolax (bisacodyl)) 10 mg PA [id number] PRN if no bm aftr mom 09/08/23
bisacodyl 5 mg tablet,delayed release (Dulcolax (bisacodyl)) 10 mg PO Q48H@0830 09/08/23
diclofenac sodium 1 % topical gel 2 g topical TID both shoulders 09/08/23
fluoxetine 40 mg capsule (Prozac) 40 mg PO DAILY 09/08/23
fluticasone propionate 50 mcg/actuation nasal spray,suspension 2 spray intranasal DAILYPRN PRN allergies 09/08/23
furosemide 20 mg tablet (Lasix) 20 mg PO DAILY 09/08/23
levetiracetam 750 mg tablet (Keppra) 750 mg PO BID 09/08/23
lidocaine 4 % topical patch 1 patch topical DAILY shoulder pain 09/08/23
loratadine 10 mg tablet (Claritin) 10 mg PO HS 09/08/23
magnesium hydroxide 400 mg/5 mL oral suspension (Milk of Magnesia) 2,400 mg PO HSPRN PRN constipation 09/08/23
metoprolol succinate 100 mg tablet,extended release 24 hr (Toprol XL) 100 mg PO DAILY 09/08/23
pantoprazole 40 mg tablet,delayed release (Protonix) 40 mg PO HS 09/08/23
tamsulosin 0.4 mg capsule (Flomax) 0.4 mg PO QPM 09/08/23
trazodone 50 mg tablet 50 mg PO HS 09/08/23
acetaminophen 300 mg-codeine 30 mg tablet 1 tab PO BIDPRN PRN moderate pain #12 tabs 09/12/23
amoxicillin 875 mg-potassium clavulanate 125 mg tablet 1 tab PO Q12H #10 tabs 09/12/23
diphenhydramine HCl 25 mg capsule 25 mg PO Q4HPRN PRN itching #12 caps 09/12/23
potassium chloride 20 mEq/15 mL oral liquid 40 meq (30 mL) PO DAILY #0 mL 09/12/23
Home Medication Changes
Augmentin for 5 days
Benadryl if needed for itching
KCL supplement
Stopped Ativan and Oxycodone to try to avoid sedation which increased risk for aspiration
Pending Results: No
[2023-09-12 15:00] VITALS: BP 169/78
== END 2023-09-12 18:52 | DRG 871 ==
LOC: 3 WEST ACU 11:21
PROVIDERS: ADMITTING PHYSICIAN Internal Medicine; ATTENDING PHYSICIAN Internal Medicine; CONSULT PHYSICIAN Internal Medicine Infectious Disease; EMERGENCY PHYSICIAN Emergency Medicine; FAMILY PHYSICIAN Student in an Organized Health Care Education/Training Program
DX: A41.9 Sepsis, unspecified organism (principal); G92.8 Other toxic encephalopathy; J69.0 Pneumonitis due to inhalation of food and vomit; N39.0 Urinary tract infection, site not specified; E87.20 Acidosis, unspecified; F03.918 Unspecified dementia, unspecified severity, with other behavioral disturbance; I69.354 Hemiplegia and hemiparesis following cerebral infarction affecting left non-dominant side; J98.11 Atelectasis; Z11.52 Encounter for screening for COVID-19; R65.20 Severe sepsis without septic shock; G47.00 Insomnia, unspecified; K21.9 Gastro-esophageal reflux disease without esophagitis; Z66 Do not resuscitate; E87.6 Hypokalemia; I48.0 Paroxysmal atrial fibrillation; N40.0 Benign prostatic hyperplasia without lower urinary tract symptoms; Z74.01 Bed confinement status
CPT/HCPCS: 70450; 71045; 71046; 74230; 76770; 80048; 80053; 81003; 81015; 83605; 83735; 85025; 85730; 87040; 87070; 87086; 87088; 87186; 87502; 87811; 92610; 92611; 93005; 96365; 96375; 99285

== ENCOUNTER → 2023-09-23 09:39 | Outpatient (REF) | payer OTHER, MEDICARE, SELFPAY | LOC: OLABN 09:39 | PROVIDERS: ATTENDING PHYSICIAN Student in an Organized Health Care Education/Training Program | DX: R19.7 Diarrhea, unspecified (principal) | CPT/HCPCS: 87045; 87046; 87077; 87324; 87427; 87449 ==

== ENCOUNTER → 2023-12-03 09:21 | Outpatient (REF) | payer MEDICARE, OTHER, SELFPAY ==
[2023-12-03 11:18] LABS: Hematocrit 31.3 % (39.0-52.0); Hemoglobin 10.6 g/dL (13.0-18.0); Mean Corp Hgb Conc. 33.9 g/dL (33.0-37.0); Mean Corpuscular Volume 91.5 fL (80.0-94.0); Mean Platelet Volume 11.4 fL (7.4-10.4); Platelet Count 132 10^3/uL (130-400); Red Blood Cell Count 3.42 10^6/uL (4.70-6.10); Red Cell Dist. Width 14.7 % (11.5-14.5); White Blood Cell Count 6.6 10^3/uL (4.8-10.8)
[2023-12-03 11:35] LABS: ALT (SGPT) 23 U/L (0-50); AST (SGOT) 26 U/L (17-59); Albumin 3.6 g/dl (3.5-5.0); Alkaline Phosphatase 73 U/L (38-126); Blood Urea Nitrogen 15 mg/dl (9-20); Calcium 8.9 mg/dl (8.4-10.2); Carbon Dioxide 27 mmol/L (22-30); Chloride 104 mmol/L (98-107); Glucose 94 mg/dl (70-99); Magnesium 1.6 mg/dl (1.6-2.3); Sodium 139 mmol/L (135-145); Total Bilirubin 0.4 mg/dl (0.2-1.3); Total Protein 6.7 g/dl (6.3-8.2); eGFR > 60.00
[2023-12-03 11:37] LABS: NT-proBNP 2000 pg/ml
== END ==
LOC: OLABN 09:21
PROVIDERS: ATTENDING PHYSICIAN Student in an Organized Health Care Education/Training Program
DX: I48.20 Chronic atrial fibrillation, unspecified (principal); E87.6 Hypokalemia; I50.22 Chronic systolic (congestive) heart failure
CPT/HCPCS: 36415; 80053; 83735; 83880; 85027

== ENCOUNTER 2023-12-21 13:57 | Emergency (ER) | payer MEDICARE, OTHER, SELFPAY ==
[2023-12-21 14:01] VITALS: BP 130/73; BMI 31.1
[2023-12-21 14:33] LABS: % Basophils 0.4 % (0-2); % Eosinophils 1.3 % (0-6); % Immature Granulocytes 0.3 % (0-0.5); % Lymphocytes 23.5 % (20.5-51.1); % Monocytes 10.1 % (1.7-9.3); % Neutrophils 64.4 % (42.2-75.2); Absolute Eosinophils 0.1 10^3/uL (0-0.7); Absolute Lymphocytes 1.7 10^3/uL (1.2-3.4); Absolute Monocytes 0.7 10^3/uL (0.1-0.6); Absolute Neutrophils 4.6 10^3/uL (1.4-6.5); Hematocrit 31.8 % (39.0-52.0); Hemoglobin 10.6 g/dL (13.0-18.0); Mean Corp Hgb Conc. 33.3 g/dL (33.0-37.0); Mean Corpuscular Hgb 30.8 pg (27.0-31.0); Mean Corpuscular Volume 92.4 fL (80.0-94.0); Mean Platelet Volume 10.4 fL (7.4-10.4); Nucleated Red Blood Cells % 0 % (-); Platelet Count 181 10^3/uL (130-400); Red Blood Cell Count 3.44 10^6/uL (4.70-6.10); Red Cell Dist. Width 13.9 % (11.5-14.5); White Blood Cell Count 7.2 10^3/uL (4.8-10.8)
[2023-12-21 14:48] LABS: Blood Urea Nitrogen 20 mg/dl (9-20); Calcium 8.8 mg/dl (8.4-10.2); Carbon Dioxide 27 mmol/L (22-30); Chloride 105 mmol/L (98-107); Estimated Creatinine Clearance 89 ml/min; Glucose 141 mg/dl (70-99); Sodium 139 mmol/L (135-145); eGFR > 60.00
--- NOTE | 2023-12-21 15:30 | ED.GENMED ---
Addendum entered and electronically signed by Marleni Hooper PA-C 12/24/23 14:25:
Patient discharged on Keflex. ESBL on urine culture resistant to cephalosporins. I spoke with Vincent, community nutrition educator, at [facility]. Will prescribe Augmentin based on sensitivities. Paper script faxed to nursing facility per community nutrition educator request.
Addendum entered and electronically signed by Jaret Iglesias DO 12/21/23 22:01:
Patient was seen by me in addition to the resident. Patient is an 82-year-old male who is essentially bed and wheelchair-bound from a care home who presents with decreased activity, lethargy, weakness and confusion over the past 3 to 4 weeks.
Patient started at that time with another upper respiratory infection. I was also concerned whether the patient had a UTI. Patient was placed on antibiotics as well as nebulizer. Patient is on cough medicine which is ineffective. Crystal Marrero
do not work for this patient in this case. Patient's had a productive cough of yellow sputum occasionally. Patient's been mildly short of breath. Patient denies chest pain. Patient denies GI symptoms. On physical exam patient's breath sounds
are coarse but essentially clear. Abdomen soft nontender. Extremities without edema. Reviewed labs and x-ray. Patient will be treated as bronchitis. Antibiotics will be called into the patient.
Original Note:
History of Present Illness
General
Chief Complaint: Weakness
Time Seen by Provider: 12/21/23 14:34
History of Present Illness
History of Present Illness:
82-year-old male with past medical history of dementia stroke, AAA, atrial fibrillation, hyperlipidemia, anxiety, depression presented to the ED for [facility] for evaluation of productive cough, congestion, increased confusion, increased
fatigue since 4 weeks. Patient's daughter states that patient has been more sleepy than usual. He denies fever, chills shortness of breath, chest pain, palpitations. Patient has been eating less because he is too tired and falls asleep while
eating his meal. He was evaluated for UTI at care home and was started on antibiotics states daughter. He was also given steroids for cough and congestion. The daughter does not recall the name of the antibiotic. Cough is productive with
yellow phlegm. Patient cannot ambulate due to history of CVA. He does not have a Auguste's catheter. He was hospitalized on 09/07 at due to aspiration pneumonia, E. coli positive urinary tract infection and confusion. He is on Eliquis 5 mg for
Afib.
Past History
Past History
ED Past Medical History: Arrthythmia, CVA, HTN, Hypercholesterolemia and Other (Dementia, depression, anxiety, AAA)
Social History
Tobacco: Non-smoker
Alcohol: None
Drug: None
Personal:
Living: care home
Employment: Retired
Phy Exam
General Physical Exam
General Presentation: no apparent distress
General age: appears stated age
General Mental: alert
ENT Exam
ENT Exam: TM's normal
Eye Exam
Eye Exam: PERRL
Cardiovascular Exam
Cardiovascular Exam: regular rate/rhythm
Pulmonary Exam
Pulmonary Exam: lungs clear, no rales, no crackles, no rhonchi and no wheezing
Course
Orders/Labs/Results
Orders:
Orders
12/21/23 14:25
Basic Metabolic Panel Urgent
Complete Blood Count/With Diff Urgent
12/21/23 15:36
CR Chest - 2 Views Urgent
Comment:
Reason For Exam: cough
12/21/23 15:40
Electrocardiogram (*1) Urgent
Reason for Study: Atrial Fibrillation
EKG- Treatment ONCE
12/21/23 16:10
Electrocardiogram (*1) Urgent
Reason for Study: Fatigue / Weakness
12/21/23 16:35
Comprehensive Metabolic Panel Urgent
TSH Reflex To Free T4 Urgent
Troponin I Urgent
12/21/23 17:26
Urine Culture Reflexed from UA [Urinalysis Reflex To Culture] Urgent
Date Specimen was Collected: 12/21/23
Time Specimen was Collected: 16:52
Urine Microscopic Reflex Cult Urgent
Urine Culture Urgent
CHENCHO Source: U
Specimen Description:
Date Specimen was Collected: 12/21/23
Time Specimen was Collected: 16:52
12/21/23 18:09
COVID-19 Antigen Urgent
Source: Nasal Swab
Abnormal Lab Results
12/21/23 12/21/23 12/21/23
14:25 16:35 17:26
RBC 3.44 L 10^6/uL
(4.70-6.10)
Hgb 10.6 L g/dL
(13.0-18.0)
Hct 31.8 L %
(39.0-52.0)
Absolute Monos (auto) 0.7 H 10^3/uL
(0.1-0.6)
Monocytes % 10.1 H %
(1.7-9.3)
Glucose 141 H mg/dl 125 H mg/dl
(70-99) (70-99)
Albumin 3.4 L g/dl
(3.5-5.0)
Leukocyte Esterase Rfl 2+ A
(Negative)
12/21/23 14:25
12/21/23 16:35
Vital Signs
Initial and Last Documented VS:
Initial Vital Signs
Temp Pulse Resp BP Pulse Ox
98.5 F 78 18 130/73 96
12/21/23 14:01 12/21/23 14:01 12/21/23 14:01 12/21/23 14:01 12/21/23 14:01
Last Documented Vital Signs
Temp Pulse Resp BP Pulse Ox
98.5 F 86 18 130/73 97
12/21/23 14:01 12/21/23 16:00 12/21/23 16:00 12/21/23 14:12/21/23 16:00
*Critical Care Note
Total Time (30-74mins, 75-104mins- exclusive of procedures): Not Applicable
Update Note
Update Note:
82-year-old male with past medical history of dementia stroke, AAA, atrial fibrillation, hyperlipidemia, anxiety, depression presented to the ED for [facility] for evaluation of productive cough, congestion, increased confusion, increased
fatigue since 4 weeks.
D/D
#1 Healthcare associated pneumonia
#2 UTI
-Checking chest x-ray, UA with reflex culture, CBC CMP
- EKG-normal sinus rhythm
- UA negative
-Patient's labs and scans are unremarkable. Will be discharging the patient on 20 mg twice daily of prednisone for 5 days. He denies any shortness of breath, chest pain, palpitations.
-Questionable if he has dementia.
Chest x-ray
FINDINGS:
Lungs: Improved aeration throughout the lungs with mild residual bibasilar interstitial thickening. No convincing focal infiltrates. No pleural effusion or pneumothorax.
Heart: Stable enlargement of the cardiomediastinal silhouette. No overt pulmonary vascular congestion.
Osseous structures: No acute abnormalities.
ED Attending Note
-
Portions of this chart may have been created with voice recognition software.� Occasional wrong word or��sound alike� substitutions may have occurred due to the inherent limitations of voice recognition software.
Discharge Plan
Departure
Patient Disposition: Skilled Nursing/SNF
Date of Disposition: 12/21/23
Time of Disposition: 18:41
Patient with high blood pressure during this ER visit?: No
Discharge Problem:
Cough
Prescriptions:
New
prednisone 20 mg tablet
20 mg PO BID 5 Days Qty: 10 0RF
benzonatate 100 mg capsule
100 mg PO TID 10 Days Qty: 30 0RF
ipratropium-albuterol 0.5 mg-3 mg(2.5 mg base)/3 mL solution for nebulization
3 ml inhalation Q6H PRN (Reason: shortness of breath or wheezing) Qty: 180 0RF
No Action
fluoxetine [Prozac] 40 mg Capsule
40 mg PO DAILY
acetaminophen 650 mg Suppository
650 mg OK Q4HPRN MDD 3000 mg PRN (Reason: fever, if unable to take PO)
lidocaine 4 % Adhesive Patch,Medicated
1 patch TOPICAL DAILY
trazodone 50 mg Tablet
50 mg PO HS
metoprolol succinate [Toprol XL] 100 mg Tablet Extended Release 24 Hr
100 mg PO DAILY
magnesium hydroxide [Milk of Magnesia] 400 mg/5 mL Suspension
2,400 mg PO HSPRN PRN (Reason: constipation)
tamsulosin [Flomax] 0.4 mg Capsule
0.4 mg PO QPM
bisacodyl [Dulcolax (bisacodyl)] 10 mg Suppository
10 mg OK [id number] PRN (Reason: if no bm aftr mom)
pantoprazole [Protonix] 40 mg Tablet,Delayed Release (Dr/Ec)
40 mg PO HS
bisacodyl [Dulcolax (bisacodyl)] 5 mg Tablet,Delayed Release (Dr/Ec)
10 mg PO Q48H@0830
levetiracetam [Keppra] 750 mg Tablet
750 mg PO BID
furosemide [Lasix] 20 mg Tablet
20 mg PO DAILY
fluticasone propionate 50 mcg/actuation [place],Suspension
2 spray INTRANASAL DAILY
Patient Comments:
12/21/23: for 14 days, starting on 12/18/23
loratadine [Claritin] 10 mg Tablet
10 mg PO HS
diclofenac sodium 1 % Gel
2 g TOPICAL TID
Eliquis 5 mg Tablet
5 mg PO BID
potassium chloride 20 mEq/15 mL Liquid
40 meq PO DAILY Qty: 0 0RF
diphenhydramine HCl 25 mg Capsule
25 mg PO Q4HPRN PRN (Reason: itching) Qty: 12 0RF
acetaminophen-codeine 300-30 mg Tablet
1 tab PO BIDPRN PRN (Reason: moderate pain) Qty: 12 0RF
buspirone 5 mg Tablet
5 mg PO TID
acetaminophen 325 mg Tablet
650 mg PO Q4HPRN MDD 3000 mg PRN (Reason: mild pain/fever)
cyanocobalamin (vitamin B-12) 500 mcg Tablet
500 mcg PO DAILY
benzonatate 100 mg Capsule
100 mg PO HS
fluticasone propionate 50 mcg/actuation [place],Suspension
2 spray INTRANASAL DAILYPRN PRN (Reason: allergic rhinitis)
Saccharomyces boulardii [Probiotic (S.boulardii)] 250 mg Capsule
250 mg PO DAILY
lorazepam gel
0.5 mg transdermal BIDPRN PRN (Reason: 30 minutes before providing care)
Patient Comments:
12/21/23: for 14 days, starting on 12/12/23 and ending on 12/25/23
Referrals:
Dustin Oliveira DO [Family Provider] - Follow up in 1 week
Interventions
Interventions:
*Risk Screen - Suicide Last Done: 12/21/23 14:01
*General Assessment Last Done: 12/21/23 14:01
*Neglect/Abuse Screening Last Done: 12/21/23 14:01
ED- Fall Risk Assessment Last Done: 12/21/23 16:32
*ED COVID-19 Vaccine History Last Done: 12/21/23 16:32
ED- Cardiac Assessment Last Done: 12/21/23 14:30
ED- Neurological Assessment Last Done: 12/21/23 14:30
ED- Pulmonary Assessment Last Done: 12/21/23 14:30
Discharge Date and Time
Print Language: SOU[place] KORE[place]
[2023-12-21 17:16] LABS: ALT (SGPT) 18 U/L (0-50); AST (SGOT) 17 U/L (17-59); Albumin 3.4 g/dl (3.5-5.0); Alkaline Phosphatase 79 U/L (38-126); Blood Urea Nitrogen 20 mg/dl (9-20); Calcium 8.8 mg/dl (8.4-10.2); Carbon Dioxide 27 mmol/L (22-30); Chloride 106 mmol/L (98-107); Estimated Creatinine Clearance 89 ml/min; Glucose 125 mg/dl (70-99); Potassium 3.7 mmol/L (3.5-5.1); Sodium 140 mmol/L (135-145); Total Bilirubin 0.3 mg/dl (0.2-1.3); Total Protein 6.5 g/dl (6.3-8.2); eGFR > 60.00
[2023-12-21 17:27] LABS: Troponin I < 0.012 ng/ml
[2023-12-21 17:34] LABS: Urine Albumin Negative (Neg - Trace); Urine Bilirubin Negative (Negative); Urine Character Clear (Clear); Urine Color Yellow; Urine Glucose Negative (Negative); Urine Ketone Negative (Negative); Urine Leukocyte 2+ (Negative); Urine Nitrite Negative (Negative); Urine Occult Blood Negative (Negative); Urine Urobilinogen Negative (Neg - 1+)
[2023-12-21 18:00] LABS: TSH Reflex To Free T4 1.96 uIU/ml (0.47-4.68)
[2023-12-21 18:33] LABS: COVID-19 Antigen Negative (Negative)
[2023-12-21 19:04] LABS: Urine Bacteria Many (Negative); Urine Red Blood Cell None Seen /HPF (0-2); Urine White Cell >100 /HPF (0-5)
== END 2023-12-21 20:05 ==
LOC: EMR 13:57
PROVIDERS: Emergency Medicine; Student in an Organized Health Care Education/Training Program; EMERGENCY PHYSICIAN Emergency Medicine; FAMILY PHYSICIAN Student in an Organized Health Care Education/Training Program
DX: R05.9 Cough, unspecified (principal); R09.81 Nasal congestion; R53.83 Other fatigue; R53.1 Weakness; R06.02 Shortness of breath; Z11.52 Encounter for screening for COVID-19; F03.90 Unspecified dementia, unspecified severity, without behavioral disturbance, psychotic disturbance, mood disturbance, and anxiety; I10 Essential (primary) hypertension; I48.91 Unspecified atrial fibrillation; I71.40 Abdominal aortic aneurysm, without rupture, unspecified; F32.A Depression, unspecified; F41.9 Anxiety disorder, unspecified; E78.00 Pure hypercholesterolemia, unspecified; Z79.01 Long term (current) use of anticoagulants; Z86.73 Personal history of transient ischemic attack (TIA), and cerebral infarction without residual deficits; Z87.440 Personal history of urinary (tract) infections
CPT/HCPCS: 99284; 71046; 80048; 80053; 81003; 81015; 84443; 84484; 85025; 87077; 87086; 87186; 87811; 93005

== ENCOUNTER → 2024-01-01 10:02 | Outpatient (REF) | payer MEDICARE, OTHER, SELFPAY ==
[2024-01-01 13:31] LABS: Total Iron Binding Capacity 232 ug/dl (261-462)
[2024-01-01 13:57] LABS: Ferritin 44.1 ng/ml (17.9-464.0)
[2024-01-01 14:12] LABS: Vitamin B12 272 pg/ml (239-931)
== END ==
LOC: OLABN 10:02
PROVIDERS: ATTENDING PHYSICIAN Student in an Organized Health Care Education/Training Program
DX: D50.9 Iron deficiency anemia, unspecified (principal); D64.9 Anemia, unspecified; F03.90 Unspecified dementia, unspecified severity, without behavioral disturbance, psychotic disturbance, mood disturbance, and anxiety
CPT/HCPCS: 82607; 82728; 83550

== ENCOUNTER → 2024-07-23 23:00 | Outpatient (REF) | payer MEDICARE, OTHER, SELFPAY ==
[2024-07-24 11:29] LABS: Urine Albumin 1+ (Neg - Trace); Urine Bilirubin Negative (Negative); Urine Character Clear (Clear); Urine Color Yellow; Urine Glucose Negative (Negative); Urine Ketone Negative (Negative); Urine Leukocyte 2+ (Negative); Urine Nitrite Positive (Negative); Urine Occult Blood Negative (Negative); Urine Specific Gravity 1.015 (<1.030); Urine Urobilinogen Negative (Neg - 1+)
[2024-07-24 12:10] LABS: Urine Bacteria Many (Negative); Urine Red Blood Cell 0-2 /HPF (0-2); Urine Squamous Cell 0-2 /LPF (Few); Urine Urothelial Cell 0-2 /LPF (FEW); Urine White Cell 50-60 /HPF (0-5)
== END ==
LOC: OLABN 23:00
PROVIDERS: ATTENDING PHYSICIAN Student in an Organized Health Care Education/Training Program
DX: Z86.19 Personal history of other infectious and parasitic diseases (principal); N40.0 Benign prostatic hyperplasia without lower urinary tract symptoms
CPT/HCPCS: 81003; 81015; 87077; 87086

== ENCOUNTER → 2024-07-24 10:35 | Outpatient (REF) | payer MEDICARE, OTHER, SELFPAY ==
[2024-07-24 12:12] LABS: Hemoglobin 11.3 g/dL (13.0-18.0); Mean Corp Hgb Conc. 33.2 g/dL (33.0-37.0); Mean Corpuscular Hgb 30.5 pg (27.0-31.0); Mean Corpuscular Volume 91.9 fL (80.0-94.0); Mean Platelet Volume 12.6 fL (7.4-10.4); Platelet Count 130 10^3/uL (130-400); Red Cell Dist. Width 13.3 % (11.5-14.5)
[2024-07-24 12:32] LABS: Blood Urea Nitrogen 19 mg/dl (9-20); Calcium 8.5 mg/dl (8.4-10.2); Carbon Dioxide 23 mmol/L (22-30); Chloride 105 mmol/L (98-107); Glucose 88 mg/dl (70-99); Potassium 4.1 mmol/L (3.5-5.1); Sodium 138 mmol/L (135-145); eGFR > 60.00
[2024-07-24 12:49] LABS: TSH 3.39 uIU/ml (0.47-4.68)
== END ==
LOC: OLABN 10:35
PROVIDERS: ATTENDING PHYSICIAN Student in an Organized Health Care Education/Training Program
DX: G47.00 Insomnia, unspecified (principal); I10 Essential (primary) hypertension
CPT/HCPCS: 36415; 80048; 84443; 85027

== ENCOUNTER → 2024-08-29 09:44 | Outpatient (REF) | payer MEDICARE, OTHER, SELFPAY ==
[2024-08-29 10:38] LABS: Urine Albumin Negative (Neg - Trace); Urine Bilirubin Negative (Negative); Urine Character Clear (Clear); Urine Color Yellow; Urine Glucose Negative (Negative); Urine Ketone Negative (Negative); Urine Leukocyte 2+ (Negative); Urine Nitrite Positive (Negative); Urine Occult Blood 1+ (Negative); Urine Specific Gravity 1.015 (<1.030); Urine Urobilinogen Negative (Neg - 1+)
[2024-08-29 10:51] LABS: Urine Bacteria Many (Negative); Urine Red Blood Cell 0-2 /HPF (0-2); Urine Squamous Cell 0-2 /LPF (Few); Urine White Cell 26-30 /HPF (0-5)
== END ==
LOC: OLABN 09:44
PROVIDERS: ATTENDING PHYSICIAN Student in an Organized Health Care Education/Training Program
DX: R35.0 Frequency of micturition (principal)
CPT/HCPCS: 81003; 81015; 87086; 87088; 87186

== ENCOUNTER → 2024-09-25 11:00 | Outpatient (REF) | payer MEDICARE, OTHER, SELFPAY ==
[2024-09-25 11:50] LABS: Vitamin D, 25-OH*** 14.7 ng/mL (30-80)
== END ==
LOC: OLABN 11:00
PROVIDERS: ATTENDING PHYSICIAN Student in an Organized Health Care Education/Training Program
DX: E55.9 Vitamin D deficiency, unspecified (principal)
CPT/HCPCS: 36415; 82306

== ENCOUNTER → 2024-09-27 07:22 | Outpatient (REF) | payer MEDICARE, OTHER, SELFPAY ==
[2024-09-27 10:48] LABS: % Basophils 0.6 % (0-2); % Eosinophils 4.8 % (0-6); % Immature Granulocytes 0.3 % (0-0.5); % Lymphocytes 25.1 % (20.5-51.1); % Monocytes 13.4 % (1.7-9.3); % Neutrophils 55.8 % (42.2-75.2); Absolute Eosinophils 0.3 10^3/uL (0-0.7); Absolute Lymphocytes 1.6 10^3/uL (1.2-3.4); Absolute Monocytes 0.9 10^3/uL (0.1-0.6); Absolute Neutrophils 3.6 10^3/uL (1.4-6.5); Hematocrit 34.4 % (39.0-52.0); Hemoglobin 11.7 g/dL (13.0-18.0); Mean Corpuscular Volume 91.2 fL (80.0-94.0); Mean Platelet Volume 11.3 fL (7.4-10.4); Nucleated Red Blood Cells % 0 % (-); Platelet Count 130 10^3/uL (130-400); Red Blood Cell Count 3.77 10^6/uL (4.70-6.10); Red Cell Dist. Width 13.5 % (11.5-14.5); White Blood Cell Count 6.5 10^3/uL (4.8-10.8)
[2024-09-27 10:52] LABS: Blood Urea Nitrogen 14 mg/dl (9-20); Calcium 8.9 mg/dl (8.4-10.2); Carbon Dioxide 25 mmol/L (22-30); Chloride 108 mmol/L (98-107); Glucose 95 mg/dl (70-99); Potassium 4.1 mmol/L (3.5-5.1); Sodium 142 mmol/L (135-145); eGFR > 60.00
== END ==
LOC: OLABN 07:22
PROVIDERS: ATTENDING PHYSICIAN Student in an Organized Health Care Education/Training Program
DX: I10 Essential (primary) hypertension (principal); R05.9 Cough, unspecified
CPT/HCPCS: 36415; 80048; 85025

== ENCOUNTER 2024-12-18 13:02 | Inpatient (IN) | payer MEDICARE, OTHER, SELFPAY ==
[2024-12-18 10:26] VITALS: BP 101/64
--- NOTE | 2024-12-18 10:38 | ED.GENMED ---
History of Present Illness
General
Chief Complaint: Breathing Problem
Source: ambulance crew and detention records
Time Seen by Provider: 12/18/24 10:25
History of Present Illness
History of Present Illness:
83-year-old male brought to the emergency room by ambulance from [facility] where the patient was noted to have a fever of 101. Also noted to have a low pulse ox. 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
provide any history. Paramedics state the patient would have an abnormal respiratory pattern en route with long pauses of his breathing. He would desat during those periods.
Past History
Past History
ED Past Medical History: Arrthythmia, CVA, HTN, Hypercholesterolemia and Other (Dementia, depression, anxiety, AAA)
Social History
Tobacco: Non-smoker
Alcohol: None
Drug: None
Personal:
Living: detention
Employment: Retired
Phy Exam
Physical Exam
Physical Exam:
General: Awake, nonverbal, appears chronically ill
Vitals: Febrile with a rectal temperature of 100.9, hypoxic at times
Head: Atraumatic
Eyes: Pupils equal, EOMI
Throat: Airway intact, no exudates, dry mucosa
Neck: Trachea midline
Lungs: Clear and equal b/l
Heart: Regular rate, no murmurs
Abd: Soft, no apparent tenderness, No pulsatile mass
Neuro: Left hemiplegia
Skin: Warm, dry, no rash
Extremities: pulses equal b/l, no edema
Scores
Heart Failure Risk
Heart Failure Risk Score: Not Applicable
Course
Orders/Labs/Results
Orders:
Orders
12/18/24 Breakfast
NPO
Allow oral meds: No
Allow clear liquids: No
NPO with Ice Chips: No
12/18/24 10:29
Electrocardiogram (*1) Urgent
Reason for Study: Shortness of Breath
EKG- Treatment ONCE
12/18/24 10:34
Straight cath- Treatment ONCE
0.9% Sodium Chloride 1000 ml [Nss] 1,000 ml IV BOLUS
Acetaminophen [Tylenol/Feverall] 650 mg RECTAL NOW STA
12/18/24 10:35
CR Chest Portable - 1 View Urgent
Comment:
Reason For Exam: fever, hypoxia
Reason Study Needs to be Portable: Patient Unstable
12/18/24 10:37
CT Head W/o Iv Contrast Urgent
Comment:
Reason For Exam: altered mental status
12/18/24 10:43
CMP [Comprehensive Metabolic Panel] Urgent
Complete Blood Count/With Diff Urgent
Lactic Acid Q4H
Comment: CANCEL 2nd LACTIC ACID IF 1st LACTIC ACID IS LESS THAN 2
Venous Blood Gas Urgent
%Oxygen/Room Air: 4l
Blood Culture Q30M
CHENCHO Source: Blood/Venous
Specimen Description:
Blood Culture Q30M
CHENCHO Source: Blood/Venous
Specimen Description:
12/18/24 10:51
Urinalysis Reflex To Culture Urgent
Date Specimen was Collected: 12/18/24
Time Specimen was Collected: 10:45
Urine Microscopic Reflex Cult Urgent
Urine Culture Urgent
CEHNCHO Source: U
Specimen Description:
Date Specimen was Collected: 12/18/24
Time Specimen was Collected: 10:45
12/18/24 11:52
Azithromycin 500 mg/250 ml [Zithromax Infusion] 500 mg in 250 ml IV NOW
CefTRIAXone [Rocephin] 2,000 mg IV NOW STA
12/18/24 12:33
COVID-19 Antigen Routine
Source: Nasal Swab
12/18/24 12:47
Admit/Transfer Patient As Directed
Co-Sign Provider:
Level of Care: Inpatient admission
Assign to:: Medical/Surgical
Physician / Group: Ana Lilia
Diagnosis: Hypoxia, Aspiration Pneumonia
Reason for Hospitalization: IV abx, oxygen supplementation
Expected length of stay greater than two midnights?: Yes
ELOS- Estimated Length of Stay in days: 3
I certify the patient meets the requirements for IP care: Yes
PRN Pain Medication Management As Directed
May give lesser potent ordered pain med per pt: Yes
preference::
Protocol:: Medication orders for pain may be administered in a
manner that supports deferring to patient preference
when the pt is:
- Requesting an ordered lesser potent pain medication.
Least to most potent pain medications are defined
as: acetaminophen < NSAID < tramadol < opioids
(morphine, oxycodone, hydromorphone).
- Requesting a lesser dose of the same medication IF
ORDERED.
- Requesting a less intrusive route of administration
if both routes are prescribed by the provider (PO <
IV).
12/18/24 12:49
Code Status As Directed
Resuscitation Status: Do not resuscitate
Reached after discussion with pt or family/Healthcare POA: Yes
DNR Bracelet Application ONCE
12/18/24 14:18
Acetaminophen [Tylenol/Feverall] 650 mg RECTAL Q4HPRN PRN fever, if unable to take PO
Metoprolol [Lopressor] 5 mg 0.9% Sodium Chloride 50 ml [Nss] 50 ml IV Q6HPRN
12/18/24 14:18
Heparin Protocol- PTT Orders As Directed
PTT per Heparin protocol: -Obtain CBC and baseline PTT - if not already collected.
-Obtain PTT 6 hours from start of infusion. Then, every 6 hours until 2 consecutive
PTT's are therapeutic. Then, PTT Daily.
-With each rate change, obtain PTT every 6 hours until 2 consecutive PTT's are
therapeutic. Then, PTT Daily.
Activity As Directed
Activity Level: Bedrest
Bladder Scan As Directed
Follow Bladder Retention/Intermittent Cath Algorithm?: Yes
PRN if no void in __ hours: 6
Frequency: Per Retention Algorithm
If Bladder Scan Result >: 400
then:: Straight cath
Notify MD As Directed
Notify physician if: PTT is greater than or equal to 200.
Pneumatic Compression Sleeves As Directed
Type: Knee high
Straight Cath As Directed
Frequency: Per Retention Algorithm
Additional Instructions: straight cath as needed per acute urinary retention algorithm for 24 hrs
Additional Instructions: for bladder scan greater than 400 mL
Vital Signs As Directed
Frequency: Per unit guidelines
Oxygen Therapy [O2 Therapy] [RESP] Routine
Titrate/Wean O2 to maintain O2 sat greater than (%): 92
Speech Therapy Eval & Treat Routine
DX Deep Vein Thrombosis Video Routine
12/18/24 14:52
Lactic Acid Q4H
Comment: CANCEL 2nd LACTIC ACID IF 1st LACTIC ACID IS LESS THAN 2
PTT Urgent
12/18/24 20:00
Heparin 50961 Units/250 ml 25,000 units in 250 ml IV PER PROTOCOL
Weight to be used for heparin protocol in kilograms (kg):: 110
Protocol:: Cardiac Tx/Acute Coronary
PTT Goal Range to be used:: PTT 73 to 111 seconds
Order type:: Initial
INITIAL Infusion Dose (UNITS/KG/hr) & then follow protocol:: 12 units/kg/hr
Infusion Dose in UNITS/hr & then follow protocol (UNITS/hr):: 1,000
INFUSION RATE in mL/hr & then follow protocol (mL/hr):: 10
PTT less than or equal to 64 seconds:: Increase rate by 200 units/hr (+ 2 mL/hr)
PTT 64.1 to 72.9 seconds:: Increase rate by 100 units/hr (+ 1 mL/hr)
PTT 73 to 111 seconds:: Target Range. No change in rate.
PTT 111.1 to 130.9 seconds:: Decrease rate by 100 units/hr (- 1 mL/hr)
PTT 131 to 199.9 seconds:: HOLD for 1 hr. Then decrease rate by 200 units/hr (- 2 mL/hr)
PTT greater than or equal to 200 seconds:: HOLD for 2 hrs & Notify Provider. Then decrease by 200 units/hr (-
2 mL/hr)
Lab follow-up:: Each change, PTT q6h until 2 consecutive are therapeutic. Then PTT
daily.
Levetiracetam Injectable [Keppra] 750 mg IV Q12
12/19/24 06:00
Basic Metabolic Panel IN AM
Complete Blood Count/No Diff IN AM
12/19/24 09:00
CefTRIAXone [Rocephin] 1,000 mg IV Q24H
12/19/24 12:00
Azithromycin 500 mg/250 ml [Zithromax Infusion] 500 mg in 250 ml IV Q24H
12/20/24 06:00
Complete Blood Count/No Diff Q2D
Comment: Notify MD if platelet count is <130,000 or decreases by 50% from baseline
12/22/24 06:00
Complete Blood Count/No Diff Q2D
Comment: Notify MD if platelet count is <130,000 or decreases by 50% from baseline
12/24/24 06:00
Complete Blood Count/No Diff Q2D
Comment: Notify MD if platelet count is <130,000 or decreases by 50% from baseline
12/26/24 06:00
Complete Blood Count/No Diff Q2D
Comment: Notify MD if platelet count is <130,000 or decreases by 50% from baseline
12/28/24 06:00
Complete Blood Count/No Diff Q2D
Comment: Notify MD if platelet count is <130,000 or decreases by 50% from baseline
12/30/24 06:00
Complete Blood Count/No Diff Q2D
Comment: Notify MD if platelet count is <130,000 or decreases by 50% from baseline
01/01/25 06:00
Complete Blood Count/No Diff Q2D
Comment: Notify MD if platelet count is <130,000 or decreases by 50% from baseline
01/03/25 06:00
Complete Blood Count/No Diff Q2D
Comment: Notify MD if platelet count is <130,000 or decreases by 50% from baseline
Abnormal Lab Results
12/18/24 12/18/24 12/18/24
10:43 10:51 12:33
RBC 4.02 L 10^6/uL
(4.70-6.10)
Hgb 12.4 L g/dL
(13.0-18.0)
Hct 36.7 L %
(39.0-52.0)
MPV 10.7 H fL
(7.4-10.4)
Absolute Monos (auto) 0.9 H 10^3/uL
(0.1-0.6)
Lymphocytes % 16.4 L %
(20.5-51.1)
Monocytes % 12.7 H %
(1.7-9.3)
VBG pO2 51 H mmHg
(30-50)
VBG HCO3 27.1 H mmol/L
(22-27)
Chloride 108 H mmol/L
(98-107)
Glucose 114 H mg/dl
(70-99)
Ur Occult Blood Reflex 3+ A
(Negative)
Urine Nitrite (Reflex) Positive A
(Negative)
Leukocyte Esterase Rfl 3+ A
(Negative)
Urine RBC 11-15 A /HPF
(0-2)
Urine WBC (Reflex) 80-90 A /HPF
(0-5)
Urine Bacteria (Reflex) Many A
(Negative)
Urine Albumin (Reflex) 2+ A
(Neg - Trace)
SARS-CoV-2 Antigen Positive A
(Negative)
12/18/24 10:43
12/18/24 10:43
Vital Signs
Initial and Last Documented VS:
Initial Vital Signs
Pulse Resp Pulse Ox
77 18 96
12/18/24 10:22 12/18/24 10:22 12/18/24 10:22
Last Documented Vital Signs
Temp Pulse Resp BP Pulse Ox
97.8 F 69 18 121/63 98
12/18/24 14:21 12/18/24 14:21 12/18/24 10:45 12/18/24 14:21 12/18/24 14:21
MDM/Problems Addressed
Differential Diagnosis Includes:
Pneumonia (aspiration versus community-acquired ), UTI, viral illness such as fluids or COVID
MDM/Problems Addressed:
Patient presents with fever, cough, hypoxia. Infiltrate noted on chest x-ray. Urinalysis also concerning for urinary tract infection though he has a history of having colonization. COVID test also positive. Patient treated with IV antibiotics.
Will defer remdesivir or other COVID-specific treatment to the hospitalist. Patient is requiring 5 L of supplemental oxygen which evidently he does not require any oxygen at baseline.
*Pulse Oximetry
SaO2: 93
Oxygen Mode of Delivery: Room air
Patient hypoxic: yes
*Critical Care Note
Total Time (30-74mins, 75-104mins- exclusive of procedures): Not Applicable
ED Attending Note
-
Portions of this chart may have been created with voice recognition software.� Occasional wrong word or��sound alike� substitutions may have occurred due to the inherent limitations of voice recognition software.
Discharge Plan
Departure
Patient Disposition: Admit
Date of Disposition: 12/18/24
Time of Disposition: 12:01
Presentation/result/management discussed w/ accepting MD/DO: Hospitalist
Condition: Fair
Discharge Problem:
Pneumonia
Interventions
Interventions:
*Risk Screen - Suicide Last Done: 12/18/24 10:22
*General Assessment Last Done: 12/18/24 10:22
*Neglect/Abuse Screening Last Done: 12/18/24 10:22
*ED COVID-19 Vaccine History Last Done: 12/18/24 10:22
*Nursing Disposition Last Done: 12/18/24 14:21
ED- Cardiac Assessment Last Done: 12/18/24 10:22
ED- Pulmonary Assessment Last Done: 12/18/24 10:22
Discharge Date and Time
Discharge Date/Time: 12/18/24 14:15
[2024-12-18] MEDS: NSS 1000 IV (10:46)
[2024-12-18] MEDS: TYLENOL/FEVERALL 650 MG RECTAL (10:55)
[2024-12-18 10:56] LABS: Venous Blood Gas B.E. 1.0 mmol/L (-4 to +4); Venous Blood Gas O2 Sat % 85.3 %
[2024-12-18 11:00] VITALS: BP 116/76
[2024-12-18 11:10] LABS: Hematocrit 36.7 % (39.0-52.0); Hemoglobin 12.4 g/dL (13.0-18.0); Mean Corp Hgb Conc. 33.8 g/dL (33.0-37.0); Mean Corpuscular Volume 91.3 fL (80.0-94.0); Nucleated Red Blood Cells % 0 % (-); Platelet Count 150 10^3/uL (130-400); Red Cell Dist. Width 13.5 % (11.5-14.5)
[2024-12-18 11:17] LABS: ALT (SGPT) 20 U/L (0-50); AST (SGOT) 20 U/L (17-59); Albumin 3.7 g/dl (3.5-5.0); Alkaline Phosphatase 68 U/L (38-126); Blood Urea Nitrogen 13 mg/dl (9-20); Calcium 8.7 mg/dl (8.4-10.2); Carbon Dioxide 25 mmol/L (22-30); Chloride 108 mmol/L (98-107); Glucose 114 mg/dl (70-99); Potassium 4.1 mmol/L (3.5-5.1); Sodium 139 mmol/L (135-145); Total Protein 6.8 g/dl (6.3-8.2); eGFR 55.19
[2024-12-18 11:24] LABS: Urine Character Cloudy (Clear)
[2024-12-18] MEDS: ROCEPHIN 2000 MG IV (11:59)
[2024-12-18 12:00] VITALS: BP 139/87
[2024-12-18] MEDS: ZITHROMAX INFUSION 250 IV (12:00)
[2024-12-18 12:09] LABS: Urine White Cell 80-90 /HPF (0-5)
--- NOTE | 2024-12-18 12:11 | HPS.HSE ---
Addendum entered and electronically signed by Annalee Rasheed PA-C 12/18/24 13:40:
Patient subsequently tested positive for COVID-19
As patient is hypoxic and unable to take oral meds at the present time will start Remdesivir and Decadron
Original Note:
Family Physician
-
Family Physician: Dustin Oliveira DO
Chief Complaint
-
Fever and Hypoxia
History of Present Illness
Patient is an 83 y/o male past medical history of atrial fibrillation, prior CVA with residual asphasia, dementia and dysphagia who presents with fever hypoxia. Additional history is obtained from patient's daughter at the bedside. Daughter has
noted a decline particularly over the past week or so. Over the past few days patient has been very congested with increased mucus/secretions. The other night patient had a vomiting episode due to inability to clear the mucus. Today patient was
noted to have a fever of 101F and was hypoxic prompting the facility to send him to the emergency department for evaluation.
Medical History
Past Medical History
Past Medical History: Reports Other
Additional Past Medical History:
Paroxysmal Atrial Fibrillation
CVA with Residual Aphasia
Dysphagia
Dementia
Anxiety/Depression/Insomnia
BPH
Bed-Bound
Past Surgical History: Reports Other
Additional Past Surgical History:
Bilateral Knee Replacements
Social History
Tobacco: Non-smoker
Alcohol: None
Living: [facility]
Family History
Family History: Unable to Obtain
Allergies / Home Medications
Allergies reflects when Allergies were last updated in [facility].
Home Medications with original date entered in [facility]
Allergy/Medication List:
Allergies
Allergy/AdvReac Type Severity Reaction Status Date / Time
No Known Allergies Allergy Unverified 09/08/23 06:52
Home Medications
acetaminophen 650 mg rectal suppository 650 mg CA Q4HPRN PRN fever, if unable to take PO 09/08/23
apixaban 5 mg tablet (Eliquis) 5 mg PO BID 09/08/23
bisacodyl 10 mg rectal suppository (Dulcolax (bisacodyl)) 10 mg CA [id number] PRN if no bm aftr mom 09/08/23
fluticasone propionate 50 mcg/actuation nasal spray,suspension 2 spray intranasal DAILY 09/08/23
furosemide 20 mg tablet (Lasix) 20 mg PO DAILY 09/08/23
levetiracetam 750 mg tablet (Keppra) 750 mg PO BID 09/08/23
lidocaine 4 % topical patch 1 patch topical DAILY RIGHT shoulder pain 09/08/23
loratadine 10 mg tablet (Claritin) 10 mg PO HS 09/08/23
magnesium hydroxide 400 mg/5 mL oral suspension (Milk of Magnesia) 2,400 mg PO HSPRN PRN constipation 09/08/23
metoprolol succinate 100 mg tablet,extended release 24 hr (Toprol XL) 100 mg PO DAILY 09/08/23
tamsulosin 0.4 mg capsule (Flomax) 0.4 mg PO QPM 09/08/23
trazodone 50 mg tablet 50 mg PO HS 09/08/23
acetaminophen 300 mg-codeine 30 mg tablet 1 tab PO BIDPRN PRN moderate pain #12 tabs 09/12/23
potassium chloride 20 mEq/15 mL oral liquid 40 meq (30 mL) PO DAILY #0 mL 09/12/23
acetaminophen 325 mg tablet 650 mg PO Q4HPRN PRN mild pain/fever 12/21/23
buspirone 5 mg tablet 5 mg PO TID 12/21/23
cyanocobalamin (vitamin B-12) 500 mcg tablet 500 mcg PO DAILY 12/21/23
cranberry fruit 450 mg tablet (cranberry) 450 mg PO DAILY 12/18/24
dextromethorphan-guaifenesin 10 mg-100 mg/5 mL oral liquid (Diabetic Tussin DM) 10 ml PO Q6HPRN PRN cough 12/18/24
diclofenac sodium 1 % topical gel 2 g topical TID B/L SHOULDERS 12/18/24
fluoxetine 40 mg capsule 40 mg PO DAILY 12/18/24
ipratropium 0.5 mg-albuterol 3 mg (2.5 mg base)/3 mL nebulization soln 3 ml inhalation R Q6HPRN PRN shortness of breath or wheezing 12/18/24
lorazepam 0.5 mg tablet 0.5 mg PO DAILYPRN PRN anxiety 12/18/24
lorazepam 0.5 mg tablet 0.5 mg PO QPM 12/18/24
pantoprazole 20 mg tablet,delayed release (Protonix) 20 mg PO HS 12/18/24
Review of Systems
-
Unable to obtain full review of systems at this time due to: Dementia (Aphasia)
Physical Exam
Vital Signs
Vital Signs
Pulse Resp BP Pulse Ox
68 18 116/76 96
12/18/24 11:45 12/18/24 10:45 12/18/24 11:00 12/18/24 11:45
Physical Exam
General: Well Developed and Well Nourished
HEENT: Anicteric, Moist mucous membranes and Oxygen (Nasal Cannula)
Respiratory: Decreased Breath Sounds (Poor inspiratory effort)
Cardiac: S1/S2 and Regular Rhythm; No Tachycardia
GI: Soft and Non Tender
Rectal: Deferred by Provider
Musculoskeletal: No Clubbing, No Cyanosis and No Edema
Skin: Warm and Dry
Neuro: Other (Lethargic and unable to follow commands at present time)
Psych: Calm
Laboratory Results
-
12/18/24 10:43
12/18/24 10:43
Laboratory Results
Lactic Acid 1.3 mmol/L (0.7-2.0) 12/18/24 10:43
Total Bilirubin 0.8 mg/dl (0.2-1.3) 12/18/24 10:43
AST 20 U/L (17-59) 12/18/24 10:43
ALT 20 U/L (0-50) 12/18/24 10:43
Alkaline Phosphatase 68 U/L (38-126) 12/18/24 10:43
Data Reviewed
-
Diagnostic Radiology: Report Reviewed by me
CT Scan: Report Reviewed by me
Lab Data: Labs Reviewed by me
Old Records: Reviewed
Impression/Plan
-
Acute Hypoxic Respiratory Insufficiency secondary to likely Aspiration Pneumonia
-Continue supplemental oxygen
-Continue NPO until seen by Speech
-Continue ceftriaxone and azithromycin
Paroxysmal Atrial Fibrillation
-Hold oral Toprol - Add Lopressor prn for tachycardia
-Start Heparin drip until able to resume Eliquis due to high CHADS-VAsc Score
CVA with Residual Aphasia
-Continue Keppra IV until able to resume oral meds - Suspect patient is on for seizure prophylaxis following CVA, no documented history of epilepsy
Dementia, unknown subtype possibly vascular dementia
Anxiety/Depression/Insomnia
-Resume oral meds once cleared by speech
BPH
-Hold Flomax
-Monitor bladder scans
DVT proph: Heparin Drip
Code Status: DNR
[2024-12-18 12:59] LABS: COVID-19 Antigen Positive (Negative)
[2024-12-18 13:00] VITALS: BP 133/80
--- NOTE | 2024-12-18 13:04 | W.PN.UPDATE ---
Update Note
Progress Note Update
Patient seen and examined, discussed with MANNY Rasheed, and I agree with her note.
Gen-sedated but arousable
HEENT-NC, AT, anicteric, clear oral mm
Neck-supple
CV-reg, no M, +S1/S2
Lungs-clear B/L
Abd-soft, NT, ND
Ext-no edema
Musculoskeletal-no cyanosis, clubbing
Skin-warm and dry
Acute metabolic encephalopathy -suspect related to acute illness, hypoxia, etc. Patient more sedated compared to baseline. Anticipate improvement with improvement in his acute illness, pneumonia.
Admission CT head without acute disease.
Acute hypoxic respiratory failure -due to community-acquired pneumonia.
Admit to [facility], continue nasal cannula oxygen.
Patient is not on oxygen in the long term. Does have a diagnosis of sleep apnea, noncompliant with CPAP according to daughter.
Left lower lobe pneumonia -noted on chest x-ray. Differential diagnosis of community-acquired pneumonia versus aspiration pneumonia. Continue ceftriaxone, azithromycin. Check urinary antigens. Check COVID antigen.
Daughter states that patient has been coughing for 1 week prior to admission with nasal discharge.
COVID-19 infection -difficult to tell if he has COVID-pneumonia versus bacterial pneumonia. Can start antiviral treatment with remdesivir, dexamethasone.
Bacteriuria/pyuria -noted on urinalysis. Unclear if true UTI. Unable to elicit symptoms given patient's somnolence, dementia.
Paroxysmal atrial fibrillation -agree with heparin drip while we await speech therapy input. Hold Eliquis.
History of stroke/aphasia -unclear why he is on Keppra, daughter unaware of history of seizures.
Chronic dysphagia -with history of aspiration pneumonia. Keep n.p.o. for now awaiting speech therapy input. Was on a modified diet in the long term prior to admission. Did have an episode of vomiting last night according to daughter.
Dementia, possibly vascular type -he is bedbound at baseline and requires feeding. Able to communicate at times according to family.
Apparently was on hospice for 6 months last year due to weight loss. The weight loss was attributed to his inability to feed himself. Once manual feeding was initiated he did gain weight and was subsequently discharged from hospice.
GERD -pantoprazole.
BPH
DNR -confirmed with daughter.
Updated patient's daughter at the bedside.
--- NOTE | 2024-12-18 13:20 | CM ---
Addendum entered by Marine Kasper 12/18/24 13:31:
Per liaison at [facility] Patient at SNF is a mukul lift, can be aggressive with care, slow to respond to questions, is an assist of 2 and needs to be fed. Patient has chronic pain per caregivers at SNF.
Original Note:
Patient seen at bedside with daughter in ED. Patient from [facility] as LTC patient per daughter. Patient daughter uncertain of current physician at facility as they have changed frequently. CM will call to admissions to confirm patient status at [facility].
Patient daughter stated that the plan is for patient to return to SNF when medically appropriate. CM will continue to follow for discharge planning needs.
Plan; return to SNF; LTC when medically appropriate.
[2024-12-18 14:21] VITALS: BP 121/63
[2024-12-18 14:23] VITALS: BMI 33.5
[2024-12-18] MEDS: DECADRON 6 MG IV (15:13)
[2024-12-18] MEDS: D5/0.45%NACL 1000 IV (15:14)
[2024-12-18] MEDS: VEKLURY 250 MG IV (15:14)
[2024-12-18 15:22] LABS: APTT 36.5 Sec (23.4-35.0)
[2024-12-18 15:53] VITALS: BMI 33.5
[2024-12-18] MEDS: KEPPRA 750 MG IV (21:37)
[2024-12-18] MEDS: HEPARIN 25000 UNITS/250 ML IV (21:38)
[2024-12-18 23:02] VITALS: BP 136/89
--- NOTE | 2024-12-18 23:11 | PTCARENOTE ---
pt pulling off oxygen desats to 70's will not keep in. unable to follow instructions to keep oxygen in.unsafe for pt in regards to resp status and oxygen needs. pulled out two iv's hitting side rails screaming- pst specialist ordered zyprexa and restraints.
[2024-12-18] MEDS: STERILE WATER FOR INJECTION 2.1 ML IM (23:16)
[2024-12-18] MEDS: ZYPREXA 5 MG IM (23:16)
--- NOTE | 2024-12-19 01:36 | PTCARENOTE ---
combative with any and all care- remains restrained - 4 liters oxygen to maintain sats. hep gtt infusing per orders. fluids running
--- NOTE | 2024-12-19 03:05 | W.PN.UPDATE ---
Update Note
Progress Note Update
0 PT agitated and pulling out IV and banging arms on side rail. Takes ativan at home. PT NPO currently. Won't take SL either. IV ativan on shortage. Will try IM zyprexa and restraints
[2024-12-19 04:21] LABS: APTT 62.4 Sec (23.4-35.0)
[2024-12-19 04:24] LABS: Hematocrit 33.6 % (39.0-52.0); Hemoglobin 11.2 g/dL (13.0-18.0); Mean Corp Hgb Conc. 33.3 g/dL (33.0-37.0); Mean Corpuscular Volume 92.8 fL (80.0-94.0); Platelet Count 132 10^3/uL (130-400); Red Cell Dist. Width 13.5 % (11.5-14.5)
[2024-12-19 05:12] LABS: Blood Urea Nitrogen 14 mg/dl (9-20); Calcium 8.2 mg/dl (8.4-10.2); Carbon Dioxide 25 mmol/L (22-30); Chloride 111 mmol/L (98-107); Glucose 144 mg/dl (70-99); Sodium 140 mmol/L (135-145)
[2024-12-19 05:37] LABS: Estimated Creatinine Clearance 71 ml/min; Potassium 4.2 mmol/L (3.5-5.1); eGFR > 60.00
[2024-12-19 07:00] VITALS: BP 136/95
[2024-12-19] MEDS: KEPPRA 750 MG IV (08:49)
[2024-12-19] MEDS: STERILE WATER FOR INJECTION 10 ML IV (08:50)
[2024-12-19] MEDS: ROCEPHIN 1000 MG IV (08:50)
--- NOTE | 2024-12-19 10:54 | W.PN.HOSP.TC ---
Addendum entered and electronically signed by Mohinder Sung DO 12/19/24 12:51:
I updated patient's daughter Bree on the phone. All questions answered.
Original Note:
Today's Communication/Plan
-
Continue antibiotics
Continue COVID therapy
Wean oxygen as able
Speech therapy evaluation when more awake
Assessment / Plan
Assessment / Plan
Gen-sedated, NAD
HEENT-NC, AT, anicteric, clear oral mm
Neck-supple
CV-reg, no M, +S1/S2
Lungs-rhonchi mostly in upper airways
Abd-soft, NT, ND
Ext-no edema
Musculoskeletal-no cyanosis, clubbing
Skin-warm and dry
Acute metabolic encephalopathy -suspect related to acute illness, hypoxia, etc. Still sedated today, requiring wrist restraints. Hopefully his mental status will improve as his clinical condition improves.
Admission CT head without acute disease.
Agitated last night and overnight MARKETING PRODUCER ordered olanzapine 5 mg, administered just before midnight.
Acute hypoxic respiratory failure -due to community-acquired pneumonia. Stable on 4 L nasal cannula oxygen.
Patient is not on oxygen in the care home. Does have a diagnosis of sleep apnea, noncompliant with CPAP according to daughter.
Left lower lobe pneumonia -noted on chest x-ray. Differential diagnosis of community-acquired pneumonia versus aspiration pneumonia. Continue ceftriaxone, azithromycin. Mild fever noted on presentation, WBC count normal.
Daughter states that patient has been coughing for 1 week prior to admission with nasal discharge.
COVID-19 infection -difficult to tell if he has COVID-pneumonia versus bacterial pneumonia. Continue IV Remdesivir, dexamethasone.
Lactic acidosis -lactate 2.2 on admission. Likely due to volume depletion, acute illness. No evidence of sepsis.
Bacteriuria/pyuria -noted on urinalysis. Unclear if true UTI. Unable to elicit symptoms given patient's somnolence, dementia.
Paroxysmal atrial fibrillation -agree with heparin drip while we await speech therapy input. Hold Eliquis.
History of stroke/aphasia -unclear why he is on Keppra, daughter unaware of history of seizures.
Chronic dysphagia -with history of aspiration pneumonia. Keep n.p.o. for now awaiting speech therapy input. Was on a modified diet in the care home prior to admission. Did have an episode of vomiting night prior to admission according to
daughter.
Dementia, possibly vascular type -he is bedbound at baseline and requires feeding. Able to communicate at times according to family.
Apparently was on hospice for 6 months last year due to weight loss. The weight loss was attributed to his inability to feed himself. Once manual feeding was initiated he did gain weight and was subsequently discharged from hospice.
Chronic anemia -hemoglobin at baseline.
GERD -pantoprazole.
BPH
DNR -confirmed with daughter.
Anticipated Discharge: > 48 hours
Subjective/Interval History
-
Date of Service: December 19, 2024
Patient seen and examined. Remains confused, sedated but arousable. Not able to converse due to sedation.
Objective Data
-
Labs:
Laboratory Results
12/19/24 12/19/24
03:38 10:45
WBC 5.1
Hgb 11.2 L
Hct 33.6 L
Plt Count 132
APTT 62.4 H Pending
Sodium 140
Potassium 4.2
Chloride 111 H
Carbon Dioxide 25
BUN 14
Creatinine 1.0
Glucose 144 H
Calcium 8.2 L
Vital Signs:
Vital Signs
Temp Pulse Resp BP Pulse Ox
97.5 F 66 16 136/95 97
12/19/24 07:00 12/19/24 07:00 12/19/24 07:00 12/19/24 07:00 12/19/24 07:00
I&O
12/18/24 12/19/24 12/20/24
06:59 06:59 06:59
Intake Total 720 / 720
Balance 720 / 720
Review of Systems
-
Unable to obtain full review of systems at this time due to: Acuity
[2024-12-19] MEDS: D5/0.45%NACL 1000 IV (11:55)
[2024-12-19 11:56] LABS: APTT 71.9 Sec (23.4-35.0)
[2024-12-19] MEDS: VEKLURY 250 MG IV (11:56)
--- NOTE | 2024-12-19 13:03 | CM ---
CM following re: discharge planning.
Reviewed pt's chart, spoke to [facility] clinical administrative coordinator to confirm pt's demographic, living situation status and prior level of functioning.
Per [facility] clinical administrative coordinator, pt is a LTC resident, on bed hold, requires Seng lift for transfer, bed bound. Per clinical administrative coordinator, pt will be accepted back for admission to [facility] when medically stable.
[facility] nursing report: [phone]
Discharge instructions fax: [phone]
D/C plan: return back to [facility] for a LTC.
CM will follow with discharge plan updates as hospitalization progresses
--- NOTE | 2024-12-19 13:10 | PTOTSP ---
Speech Language Pathology
Pt seen for clinical bedside swallow evaluation. Known to [employer] FREIGHT FORWARDER at from [facility] completed 09/10/23. Recommendations were for IDDSI Level 6/mildly thick liquids given penetration to the level of the vocal folds with thin liquids. On regular
solids/mildly thick liquids at facility.
P.O. trials of puree, regular solids, thin liquids, and mildly thick liquids provided. Adequate mastication, bolus formation, and A-P transit noted. Significantly stuffy nose noted. Noise noted with swallow, suspect coming from stuffy nose. Wet
voice noted with thin liquids. No overt signs of aspiration or wet voice with solids or mildly thick liquids.
Recommend:
(1) Initiate baseline diet of regular solids/mildly thick liquids
(2) Aspiration precautions: sit upright, slow rate, single sips, full assist
(3) Meds crushed in puree
(4) IMP[employer] FREIGHT FORWARDER to continue to follow
[2024-12-19] MEDS: ZITHROMAX INFUSION 250 IV (13:38)
[2024-12-19] MEDS: DECADRON 6 MG IV (13:38)
[2024-12-19 15:00] VITALS: BP 147/76
[2024-12-19] MEDS: KEPPRA 750 MG PO (21:19)
[2024-12-19] MEDS: ELIQUIS 5 MG PO (21:19)
[2024-12-19] MEDS: DESENEX/MITRAZOL/ZEASORB 1 APPLIC TOPICAL (21:21)
[2024-12-19 23:00] VITALS: BP 153/83
[2024-12-20] MEDS: D5/0.45%NACL 1000 IV (02:03)
[2024-12-20 07:01] LABS: Hematocrit 34.3 % (39.0-52.0); Hemoglobin 11.4 g/dL (13.0-18.0); Mean Corp Hgb Conc. 33.2 g/dL (33.0-37.0); Mean Corpuscular Volume 92.2 fL (80.0-94.0); Platelet Count 148 10^3/uL (130-400); Red Cell Dist. Width 13.2 % (11.5-14.5)
[2024-12-20 07:29] LABS: Blood Urea Nitrogen 15 mg/dl (9-20); Calcium 8.2 mg/dl (8.4-10.2); Carbon Dioxide 23 mmol/L (22-30); Chloride 110 mmol/L (98-107); Estimated Creatinine Clearance 79 ml/min; Glucose 125 mg/dl (70-99); Potassium 3.9 mmol/L (3.5-5.1); Sodium 140 mmol/L (135-145); eGFR > 60.00
[2024-12-20 07:40] VITALS: BP 125/79
--- NOTE | 2024-12-20 09:46 | W.PN.HOSP.TC ---
Addendum entered and electronically signed by Mohinder Sung DO 12/20/24 13:56:
I updated patient's daughter Bree on the phone. All questions answered. She is pleased with her father's improvement, she states that he is much more talkative here than he was in the care home.
We discussed discharge plans with hopefully discharge back to care home tomorrow.
Family interested in pursuing hospice in the care home.
I spoke with case management and requested that she assist with discharge plans.
Original Note:
Today's Communication/Plan
-
stop IVF
wean oxygen
Assessment / Plan
Assessment / Plan
Gen-sedated, NAD
HEENT-NC, AT, anicteric, clear oral mm
Neck-supple
CV-reg, no M, +S1/S2
Lungs-rhonchi mostly in upper airways
Abd-soft, NT, ND
Ext-no edema
Musculoskeletal-no cyanosis, clubbing
Skin-warm and dry
Acute metabolic encephalopathy -suspect related to acute illness, hypoxia, etc. Still sedated today, requiring wrist restraints. Hopefully his mental status will improve as his clinical condition improves.
Admission CT head without acute disease.
Nursing reports that he still has episodes of agitation. Restraints as needed.
Acute hypoxic respiratory failure -due to presumed community-acquired pneumonia, as well as COVID infection. Stable on 4 L nasal cannula oxygen. I asked nursing to wean oxygen down as able.
Patient is not on oxygen in the care home. Does have a diagnosis of sleep apnea, noncompliant with CPAP according to daughter.
Left lower lobe pneumonia -noted on chest x-ray. Differential diagnosis of community-acquired pneumonia versus aspiration pneumonia. Continue ceftriaxone, azithromycin. Mild fever noted on presentation, WBC count normal.
Daughter states that patient has been coughing for 1 week prior to admission with nasal discharge.
Day 3 of antibiotics.
Mild leukopenia noted. Monitor for now.
COVID-19 infection -difficult to tell if he has COVID-pneumonia versus bacterial pneumonia. Continue IV Remdesivir (day 3 of 5), dexamethasone.
Lactic acidosis -lactate 2.2 on admission. Likely due to volume depletion, acute illness. No evidence of sepsis.
Possible UTI -urine culture notes E. coli, pyuria noted on urinalysis. Currently on antibiotics which will likely cover UTI as well.
Paroxysmal atrial fibrillation -agree with heparin drip while we await speech therapy input. Hold Eliquis.
History of stroke/aphasia -unclear why he is on Keppra, daughter unaware of history of seizures.
Chronic dysphagia -with history of aspiration pneumonia. Speech therapy evaluated and recommended regular diet with mildly thick liquids. Discontinue IV fluids as oral intake is adequate per nursing.
Dementia, possibly vascular type -he is bedbound at baseline and requires feeding. Able to communicate at times according to family.
Apparently was on hospice for 6 months last year due to weight loss. The weight loss was attributed to his inability to feed himself. Once manual feeding was initiated he did gain weight and was subsequently discharged from hospice.
Chronic anemia -hemoglobin at baseline.
GERD -pantoprazole.
BPH
DNR -confirmed with daughter.
PT/OT
Anticipated Discharge: > 48 hours
Subjective/Interval History
-
Date of Service: December 20, 2024
Patient seen and examined. No complaints.
Objective Data
-
Labs:
Laboratory Results
12/19/24 12/20/24
21:30 06:17
WBC 4.7 L
Hgb 11.4 L
Hct 34.3 L
Plt Count 148
APTT Cancelled
Sodium 140
Potassium 3.9
Chloride 110 H
Carbon Dioxide 23
BUN 15
Creatinine 0.9
Glucose 125 H
Calcium 8.2 L
Vital Signs:
Vital Signs
Temp Pulse Resp BP Pulse Ox
97.7 F 63 16 125/79 98
12/20/24 07:40 12/20/24 07:40 12/20/24 07:40 12/20/24 07:40 12/20/24 07:40
I&O
12/19/24 12/20/24 12/21/24
06:59 06:59 06:59
Intake Total 720 / 720 1700 / 1700
Output Total 1725 / 1725
Balance 720 / 720 -
Review of Systems
-
Unable to obtain full review of systems at this time due to: Dementia
History Source: Patient
All other systems: Reviewed and negative
[2024-12-20] MEDS: KEPPRA 750 MG PO ×2 (09:50→20:04)
[2024-12-20] MEDS: ROCEPHIN 1000 MG IV (09:50)
[2024-12-20] MEDS: STERILE WATER FOR INJECTION 10 ML IV (09:50)
[2024-12-20] MEDS: DECADRON 6 MG PO (09:50)
[2024-12-20] MEDS: ELIQUIS 5 MG PO ×2 (09:50→20:04)
[2024-12-20] MEDS: DESENEX/MITRAZOL/ZEASORB 1 APPLIC TOPICAL ×2 (09:53→20:23)
[2024-12-20] MEDS: ZITHROMAX INFUSION 250 IV (11:11)
[2024-12-20] MEDS: VEKLURY 250 MG IV (15:48)
[2024-12-20 16:28] VITALS: BP 132/89
--- NOTE | 2024-12-20 16:42 | PTCARENOTE ---
Patient AAOx2 this shift, disoriented to time, confused conversation but pleasant, cooperative with care. Daughter at bedside, patient weaned to RA 97%. B/L wrist restraints removed, made aware. Bed alarm in place, R FA IV wrapped with RemD
infusing.
[2024-12-20] MEDS: ATIVAN 0.5 MG PO (20:07)
[2024-12-20] MEDS: DESYREL 50 MG PO (21:22)
[2024-12-20 23:12] VITALS: BP 152/78
[2024-12-21 07:01] LABS: ALT (SGPT) 23 U/L (0-50); AST (SGOT) 21 U/L (17-59); Albumin 3.5 g/dl (3.5-5.0); Alkaline Phosphatase 57 U/L (38-126); Blood Urea Nitrogen 19 mg/dl (9-20); Calcium 8.7 mg/dl (8.4-10.2); Carbon Dioxide 26 mmol/L (22-30); Chloride 113 mmol/L (98-107); Estimated Creatinine Clearance 71 ml/min; Glucose 102 mg/dl (70-99); Potassium 4.1 mmol/L (3.5-5.1); Sodium 143 mmol/L (135-145); Total Protein 6.6 g/dl (6.3-8.2); eGFR > 60.00
[2024-12-21 08:17] VITALS: BP 159/93
[2024-12-21] MEDS: ROCEPHIN 1000 MG IV (08:18)
[2024-12-21] MEDS: STERILE WATER FOR INJECTION 10 ML IV (08:18)
[2024-12-21] MEDS: ELIQUIS 5 MG PO (08:18)
[2024-12-21] MEDS: DECADRON 6 MG PO (08:18)
[2024-12-21] MEDS: KEPPRA 750 MG PO (08:18)
[2024-12-21] MEDS: DESENEX/MITRAZOL/ZEASORB 1 APPLIC TOPICAL (08:20)
--- NOTE | 2024-12-21 10:23 | W.PN.HOSP.TC ---
Today's Communication/Plan
-
Discharge
Assessment / Plan
Assessment / Plan
Gen-sedated, NAD
HEENT-NC, AT, anicteric, clear oral mm
Neck-supple
CV-reg, no M, +S1/S2
Lungs-rhonchi mostly in upper airways
Abd-soft, NT, ND
Ext-no edema
Musculoskeletal-no cyanosis, clubbing
Skin-warm and dry
Acute metabolic encephalopathy -suspect related to acute illness, hypoxia, etc. Clinically improved.
Admission CT head without acute disease.
Mental status back to baseline.
Acute hypoxic respiratory failure -due to presumed community-acquired pneumonia, as well as COVID infection. Oxygenation now improved, currently on room air.
Patient is not on oxygen in the senior care. Does have a diagnosis of sleep apnea, noncompliant with CPAP according to daughter.
Left lower lobe pneumonia -noted on chest x-ray. Differential diagnosis of community-acquired pneumonia versus aspiration pneumonia. Continue ceftriaxone, azithromycin. Mild fever noted on presentation, WBC count normal.
Daughter states that patient has been coughing for 1 week prior to admission with nasal discharge.
Day 4 of antibiotics.
Mild leukopenia noted. Monitor for now.
COVID-19 infection -difficult to tell if he has COVID-pneumonia versus bacterial pneumonia. Continue IV Remdesivir (day 4 of 5), dexamethasone.
Lactic acidosis -lactate 2.2 on admission. Likely due to volume depletion, acute illness. No evidence of sepsis.
Positive urine culture -looking back at multiple prior urine cultures dating to August 2023, ESBL E. coli noted. Multidrug-resistant. Highly suspect colonization rather than true infection.
Paroxysmal atrial fibrillation -continue Eliquis.
History of stroke/aphasia -unclear why he is on Keppra, daughter unaware of history of seizures.
Chronic dysphagia -with history of aspiration pneumonia. Speech therapy evaluated and recommended regular diet with mildly thick liquids.
Dementia, possibly vascular type -he is bedbound at baseline and requires feeding. Able to communicate at times according to family.
Apparently was on hospice for 6 months last year due to weight loss. The weight loss was attributed to his inability to feed himself. Once manual feeding was initiated he did gain weight and was subsequently discharged from hospice.
Chronic anemia -hemoglobin at baseline.
GERD -pantoprazole.
BPH
DNR -confirmed with daughter.
Dispo -medically stable for discharge back to senior care today.
31 minutes spent in discharge process.
Anticipated Discharge: Today
Subjective/Interval History
-
Date of Service: December 21, 2024
Patient seen and examined. No complaints.
Objective Data
-
Labs:
Laboratory Results
12/21/24
06:16
Sodium 143
Potassium 4.1
Chloride 113 H
Carbon Dioxide 26
BUN 19
Creatinine 1.0
Glucose 102 H
Calcium 8.7
Total Bilirubin 0.5
AST 21
ALT 23
Alkaline Phosphatase 57
Vital Signs:
Vital Signs
Temp Pulse Resp BP Pulse Ox
97.0 F 70 16 159/93 99
12/21/24 08:17 12/21/24 08:17 12/21/24 08:17 12/21/24 08:17 12/21/24 10:07
I&O
12/20/24 12/21/24 12/22/24
06:59 06:59 06:59
Intake Total 1700 / 1700 480 / 480
Output Total 1725 / 1725 350 / 350
Balance -25 / -25 130 / 130
Review of Systems
-
History Source: Patient
All other systems: Reviewed and negative
--- NOTE | 2024-12-21 10:38 | W.DS.TRANS ---
DC Summary - [employer]
-
Discharge Instructions:
Discharge Diagnosis/Procedures Pneumonia, COVID-19 infection
Diet Regular,Other diet
Additional Diets Mildly thick liquids
Activity With assistance
Driving Restrictions No driving
Bathing Restrictions None
Instructions:
Stand-Alone Forms:
Changes to Home Medications: Yes
Discharge Medications:
DC Medications w/original date entered in [employer]
acetaminophen 650 mg rectal suppository 650 mg [place] Q4HPRN PRN fever, if unable to take PO 09/08/23
apixaban 5 mg tablet (Eliquis) 5 mg PO BID Blood Clot Prevention/Tx 09/08/23
bisacodyl 10 mg rectal suppository (Dulcolax (bisacodyl)) 10 mg AZ [id number] PRN if no bm aftr mom 09/08/23
fluticasone propionate 50 mcg/actuation nasal spray,suspension 2 spray intranasal DAILY Congestion 09/08/23
furosemide 20 mg tablet (Lasix) 20 mg PO DAILY Fluid Retention/Swelling 09/08/23
levetiracetam 750 mg tablet (Keppra) 750 mg PO BID Seizures 09/08/23
lidocaine 4 % topical patch 1 patch topical DAILY RIGHT shoulder pain 09/08/23
loratadine 10 mg tablet (Claritin) 10 mg PO HS Allergies 09/08/23
magnesium hydroxide 400 mg/5 mL oral suspension (Milk of Magnesia) 2,400 mg PO HSPRN PRN constipation 09/08/23
tamsulosin 0.4 mg capsule (Flomax) 0.4 mg PO QPM Urinary Issue 09/08/23
trazodone 50 mg tablet 50 mg PO HS Sleep 09/08/23
acetaminophen 325 mg tablet 650 mg PO Q4HPRN PRN mild pain/fever 12/21/23
buspirone 5 mg tablet 5 mg PO TID Mental Health/Anxiety 12/21/23
cyanocobalamin (vitamin B-12) 500 mcg tablet 500 mcg PO DAILY Supplement 12/21/23
cranberry fruit 450 mg tablet (cranberry) 450 mg PO DAILY Supplement 12/18/24
dextromethorphan-guaifenesin 10 mg-100 mg/5 mL oral liquid (Diabetic Tussin DM) 10 ml PO Q6HPRN PRN cough 12/18/24
diclofenac sodium 1 % topical gel 2 g topical TID B/L SHOULDERS 12/18/24
fluoxetine 40 mg capsule 40 mg PO DAILY Mental Health 12/18/24
ipratropium 0.5 mg-albuterol 3 mg (2.5 mg base)/3 mL nebulization soln 3 ml inhalation R Q6HPRN PRN shortness of breath or wheezing 12/18/24
pantoprazole 20 mg tablet,delayed release (Protonix) 20 mg PO HS Gastrointestinal Issue 12/18/24
potassium chloride 20 mEq/15 mL oral liquid 40 meq PO DAILY Electrolyte Repletion 12/18/24
amoxicillin 875 mg-potassium clavulanate 125 mg tablet 1 tab PO BID #6 tabs 12/21/24
dexamethasone 6 mg tablet 6 mg PO DAILY #6 tabs 12/21/24
lorazepam 0.5 mg tablet 0.5 mg PO DAILYPRN PRN anxiety #3 tabs 12/21/24
lorazepam 0.5 mg tablet 0.5 mg PO QPM Mental Health/Anxiety #3 tabs 12/21/24
metoprolol succinate 50 mg tablet,extended release 24 hr (Toprol XL) 50 mg PO DAILY #30 tabs 12/21/24
Home Medication Changes
Metoprolol XL dose reduced to 50 mg daily.
Pending Results: No
[2024-12-21] MEDS: ZITHROMAX INFUSION 250 IV (11:02)
[2024-12-21] MEDS: TOPROL XL 50 MG PO (11:04)
[2024-12-21] MEDS: VEKLURY IV (12:21)
[2024-12-21] MEDS: MIRALAX 17 GRAMS PO (12:32)
[2024-12-21] MEDS: COLACE 100 MG PO (12:33)
[2024-12-21] MEDS: DULCOLAX 10 MG RECTAL (12:33)
[2024-12-21 14:17] VITALS: BP 139/80
--- NOTE | 2024-12-21 14:41 | CM ---
Pt for dc to [facility] today. Transport papers completed.
Report; [phone]
Fax; [phone]
--- NOTE | 2024-12-21 14:49 | CM ---
[facility].
Daughter was called and updated.
Daughter interested in Hospice eval. Referral placed through [employer].
--- NOTE | 2024-12-21 16:09 | PTCARENOTE ---
Patient discharged back to [facility], report given by this RN to Amadeo. Patient with no documented BM since admission, MD made aware by this RN, ordered one time dose of colace, miralax, and dulcolax suppository - administered by
this RN. Facility aware of patient with no documented BM and administration of bowel regimen prior to DC. IV and CC removed by this RN, patient changed prior to transport and vitals taken. Belongings gathered at bedside.
--- NOTE | 2024-12-21 16:10 | HOSPNOTE ---
Received referral - spoke with patient's daughter Una, provided information and we will follow patient once he gets back to [place]. Pt was on Hospice in the past and will require a face to face visit to determine eligibility
--- NOTE | 2024-12-22 12:33 | HOSPNOTE ---
Daughter had asked for patient to be reevaluated for hospice services. Spoke to Meseret FRANNY and reviewed patients records with her. At this time she does not feel patient is hospice appropriate. I notified the daughter Una of this information.
She was a little surprised and thought a face to face would occur. Reviewed that patient would require this if he was hospice eligible but Meseret felt she had enough information to determine that he is not hospice appropriate at this time and did
not need to conduct face to face. Notified Vannessa at [facility] that patient per Meseret [facility]ANT[facility] is not hospice appropriate. Reviewed the daughter may call them and ask him to be evaluated for another hospice agency. Vannessa was thankful for the
information.
== END 2024-12-21 16:28 | DRG 177 ==
LOC: 2 NORTH 13:02
PROVIDERS: Physician Assistant Medical; ADMITTING PHYSICIAN Hospitalist; EMERGENCY PHYSICIAN Emergency Medicine; FAMILY PHYSICIAN Student in an Organized Health Care Education/Training Program
DX: U07.1 COVID-19 (principal); G93.41 Metabolic encephalopathy; J69.0 Pneumonitis due to inhalation of food and vomit; J96.01 Acute respiratory failure with hypoxia; E87.20 Acidosis, unspecified; Z66 Do not resuscitate; I48.0 Paroxysmal atrial fibrillation; I69.320 Aphasia following cerebral infarction; Z74.01 Bed confinement status
CPT/HCPCS: 51701; 70450; 71045; 80048; 80053; 81003; 81015; 82805; 83605; 85025; 85027; 85730; 87040; 87070; 87077; 87086; 87186; 87811; 92610; 93005; 96361; 96365; 96375; 99285; J0248; J2358